=== PATIENT | male | born 1950 | race Caucasian/White ===

== ENCOUNTER 2017-05-10 14:03 | Inpatient (IN) | payer OTHER ==
[~2017-05-10] VITALS: Ht 180.3 cm; Wt 141.9 kg
[~2017-05-10 14:03] MED LIST: ASPI81 CHEW; LEXA5TAB PO; LURA20TA PO; RIVA15 PO; WELL150T PO; ZOCO40TA PO
--- NOTE | 2017-05-10 14:21 | PD ---
HPI Chief Complaint: SOB Time Seen by Provider: 14:19 Travel History International Travel<30 days: No Contact w/Intl Traveler<30days: No Traveled to known affect area: No History of Present Illness HPI 66-year-old male with history of CAD, hypertension, PE, on where friend, presents to the emergency department today for evaluation of hypoxia and worsening shortness of breath. Patient has been having cough and chest congestion over the last 5-6 days. He rode his bike to the [facility] today for a doctor's appointment. When he arrived, he was diaphoretic, short of breath, with oxygen saturations of 74%. Patient was given albuterol treatment there and ambulance was called to transport him here for further evaluation. Patient arrives with sensation of shortness of breath. He he states that after his breathing treatment he does feel a little bit better. He has had chills and unknown fever. No nausea or vomiting. Patient states his cough has been productive of a green sputum. He denies any pain. He has no other symptoms to report this time PFSH Past Medical History Blood Disorders: No Depression: Yes Cancer: No Cardiovascular Problems: Yes Endocrine: No Genitourinary: No Hypertension: Yes (HISTORY OF HYPERTENSION) Immune Disorder: No Implanted Vascular Access Dvce: No Musculoskeletal: Yes (OLD BACK INJURY THAT CAUSES OCCASSIONAL BACK PAIN) Neurologic: No (TINITIS ) Psychiatric: No Reproductive: No Respiratory: No Social History Alcohol Use: No Tobacco Use: No Substance Use: No Allergies-Medications (Allergen,Severity, Reaction): Coded Allergies: shellfish derived (Verified Allergy, Unknown, 05/10/17) Reported Meds & Prescriptions Reported Meds & Active Scripts Active Reported Warfarin 10 Mg Tab 10 Mg PO DAILY Atenolol 25 Mg Tab 25 Mg PO BID Simvastatin 40 Mg Tab 40 Mg PO HS Abilify (Aripiprazole) 10 Mg Tab 10 Mg PO DAILY Effexor XR 24 HR (Venlafaxine HCl) 150 Mg Cap 150 Mg PO DAILY Review of Systems Except as stated in HPI: all other systems reviewed are Neg Physical Exam Narrative GENERAL: Well-nourished male patient, in no acute distress. SKIN: Focused skin assessment warm/mildly diaphoretic. HEAD: Atraumatic. Normocephalic. EYES: Pupils equal and round. No scleral icterus. No injection or drainage. ENT: No nasal bleeding or discharge. Mucous membranes pink and moist. NECK: Trachea midline. No JVD. CARDIOVASCULAR: Tachycardic rate and rhythm. No murmur appreciated. RESPIRATORY: No accessory muscle use. Coarse throughout, diminished bases. Breath sounds equal bilaterally. GASTROINTESTINAL: Abdomen soft, non-tender, nondistended. Hepatic and splenic margins not palpable. MUSCULOSKELETAL: No obvious deformities. No clubbing. No cyanosis. No edema. NEUROLOGICAL: Awake and alert. No obvious cranial nerve deficits. Motor grossly within normal limits. Normal speech. PSYCHIATRIC: Appropriate mood and affect; insight and judgment normal. Data Data Last Documented VS Vital Signs Date Time Temp Pulse Resp B/P (MAP) Pulse Ox O2 Delivery O2 Flow Rate FiO2 05/10/17 15:51 95 Nasal Cannula 2.00 05/10/17 15:12 102 18 05/10/17 15:11 98.8 146/83 (104) Orders Orders Electrocardiogram (05/10/17 14:19) Complete Blood Count With Diff (05/10/17 14:19) Comprehensive Metabolic Panel (05/10/17 14:19) Prothrombin Time / Inr (Pt) (05/10/17 14:19) Act Partial Throm Time (Ptt) (05/10/17 14:19) Lactic Acid Sepsis Protocol (05/10/17 14:19) Ckmb (Isoenzyme) Profile (05/10/17 14:19) Troponin I (05/10/17 14:19) Urinalysis - C+S If Indicated (05/10/17 14:19) Influenzae A/B Antigen (05/10/17 14:19) Blood Culture (05/10/17 14:19) Chest, Pa & Lat (05/10/17 14:19) Blood Glucose (05/10/17 14:19) Ecg Monitoring (05/10/17 14:19) Iv Access Insert/Monitor (05/10/17 14:19) Oximetry (05/10/17 14:19) Oxygen Administration (05/10/17 14:19) Ceftriaxone Inj (Rocephin Inj) (05/10/17 14:30) Azithromycin Inj (Zithromax Inj) (05/10/17 14:30) CKMB (05/10/17 14:28) CKMB% (05/10/17 14:28) Albuterol-Ipratropium Neb (Duoneb Neb) (05/10/17 15:30) B-Type Natriuretic Peptide (05/10/17 16:36) Admit Order (Ed Use Only) (05/10/17 18:23) Labs Laboratory Tests Test 05/10/17 14:28 White Blood Count 8.6 TH/MM3 Red Blood Count 3.62 MIL/MM3 Hemoglobin 13.3 GM/DL Hematocrit 36.8 % Mean Corpuscular Volume 101.4 FL Mean Corpuscular Hemoglobin 36.6 PG Mean Corpuscular Hemoglobin Concent 36.1 % Red Cell Distribution Width 13.6 % Platelet Count 354 TH/MM3 Mean Platelet Volume 8.9 FL Neutrophils (%) (Auto) 62.7 % Lymphocytes (%) (Auto) 23.9 % Monocytes (%) (Auto) 9.2 % Eosinophils (%) (Auto) 3.7 % Basophils (%) (Auto) 0.5 % Neutrophils # (Auto) 5.4 TH/MM3 Lymphocytes # (Auto) 2.1 TH/MM3 Monocytes # (Auto) 0.8 TH/MM3 Eosinophils # (Auto) 0.3 TH/MM3 Basophils # (Auto) 0.0 TH/MM3 CBC Comment AUTO DIFF Differential Comment AUTO DIFF CONFIRMED Platelet Estimate HIGH Platelet Morphology Comment NORMAL Spherocytes OCC Prothrombin Time 17.2 SEC Prothromb Time International Ratio 1.5 RATIO Activated Partial Thromboplast Time 32.2 SEC Blood Urea Nitrogen 23 MG/DL Creatinine 0.95 MG/DL Random Glucose 118 MG/DL Total Protein 8.2 GM/DL Albumin 3.5 GM/DL Calcium Level 8.8 MG/DL Alkaline Phosphatase 69 U/L Aspartate Amino Transf (AST/SGOT) 32 U/L Alanine Aminotransferase (ALT/SGPT) 40 U/L Total Bilirubin 0.5 MG/DL Sodium Level 138 MEQ/L Potassium Level 4.4 MEQ/L Chloride Level 103 MEQ/L Carbon Dioxide Level 25.6 MEQ/L Anion Gap 9 MEQ/L Estimat Glomerular Filtration Rate 80 ML/MIN Lactic Acid Level 1.7 mmol/L Total Creatine Kinase 276 U/L Creatine Kinase MB 3.0 NG/ML Troponin I LESS THAN 0.02 NG/ML B-Type Natriuretic Peptide 14 PG/ML MDM Medical Decision Making Medical Screen Exam Complete: Yes Emergency Medical Condition: Yes Medical Record Reviewed: Yes Differential Diagnosis Pneumonia versus influenza versus bronchitis versus PE versus CHF versus ACS Narrative Course 66-year-old male presents to emergency department for evaluation. Patient appears without distress. He is mildly diaphoretic. His oxygen saturation is 86% on room air. Oxygen is applied and oxygen saturation increases to 94%. Patient does have coarse breath sounds throughout. Imaging studies and labs are ordered. Laboratory Tests Test 05/10/17 14:28 White Blood Count 8.6 TH/MM3 Red Blood Count 3.62 MIL/MM3 Hemoglobin 13.3 GM/DL Hematocrit 36.8 % Mean Corpuscular Volume 101.4 FL Mean Corpuscular Hemoglobin 36.6 PG Mean Corpuscular Hemoglobin Concent 36.1 % Red Cell Distribution Width 13.6 % Platelet Count 354 TH/MM3 Mean Platelet Volume 8.9 FL Neutrophils (%) (Auto) 62.7 % Lymphocytes (%) (Auto) 23.9 % Monocytes (%) (Auto) 9.2 % Eosinophils (%) (Auto) 3.7 % Basophils (%) (Auto) 0.5 % Neutrophils # (Auto) 5.4 TH/MM3 Lymphocytes # (Auto) 2.1 TH/MM3 Monocytes # (Auto) 0.8 TH/MM3 Eosinophils # (Auto) 0.3 TH/MM3 Basophils # (Auto) 0.0 TH/MM3 CBC Comment AUTO DIFF Differential Comment AUTO DIFF CONFIRMED Platelet Estimate HIGH Platelet Morphology Comment NORMAL Spherocytes OCC Prothrombin Time 17.2 SEC Prothromb Time International Ratio 1.5 RATIO Activated Partial Thromboplast Time 32.2 SEC Blood Urea Nitrogen 23 MG/DL Creatinine 0.95 MG/DL Random Glucose 118 MG/DL Total Protein 8.2 GM/DL Albumin 3.5 GM/DL Calcium Level 8.8 MG/DL Alkaline Phosphatase 69 U/L Aspartate Amino Transf (AST/SGOT) 32 U/L Alanine Aminotransferase (ALT/SGPT) 40 U/L Total Bilirubin 0.5 MG/DL Sodium Level 138 MEQ/L Potassium Level 4.4 MEQ/L Chloride Level 103 MEQ/L Carbon Dioxide Level 25.6 MEQ/L Anion Gap 9 MEQ/L Estimat Glomerular Filtration Rate 80 ML/MIN Lactic Acid Level 1.7 mmol/L Total Creatine Kinase 276 U/L Creatine Kinase MB 3.0 NG/ML Troponin I LESS THAN 0.02 NG/ML B-Type Natriuretic Peptide 14 PG/ML Last Impressions Chest X-Ray 05/10/17 [id number] Signed Impressions: Service Date/Time: May 14:31 - CONCLUSION: No acute disease. No significant change has occurred. Haris Galeana MD We have attempted to wean the patient off of his oxygen and the patient and his oxygen saturation does drop to 88%. Patient states he continues to have some mild shortness of breath. I discussed the patient with my attending agrees he will best benefit from observation status. Spoke with Dr. Davidson, resident physician retail services professional. Patient will be admitted observation to the [facility] [facility] resident service. Diagnosis Primary Impression: Bronchitis Additional Impressions: Shortness of breath Hypoxia Admitting Information Admitting Physician Requests: Observation Condition: Stable AlfaroMina jeanlizz TOURE May 10, 2017 14:21
[2017-05-10 14:22] VITALS: RESP 18; O2SAT 96
[2017-05-10] MEDS ORDERED: cefTRIAXone INJ 1,000 MG in SODIUM CHLORIDE 0.9% INJ 100 ML IV ONE (14:30)
[2017-05-10] MEDS ORDERED: AZITHROMYCIN INJ 500 MG in SODIUM CHLOR 0.9% 250 ML INJ 250 ML IV ONE (14:30)
--- NOTE | 2017-05-10 14:46 | RADRPT ---
EXAM DATE/TIME: 05/10/2017 14:31 [facility] COMPARISON: CHEST SINGLE AP, April 25, 2016, 8:38. INDICATIONS : Cough- Bronchitis. MEDICAL HISTORY : Hypertension. Bronchitis. SURGICAL HISTORY : None. ENCOUNTER: Initial ACUITY: 4 - 6 days PAIN SCORE: 0/10 LOCATION: Bilateral chest FINDINGS: PA and lateral views of the chest demonstrate the lungs to be symmetrically aerated without evidence of mass, infiltrate or effusion. The cardiomediastinal contours are unremarkable. Osseous structure s are intact. CONCLUSION: No acute disease. No significant change has occurred. Haris Galeana MD on May 10, 2017 at 14:44 Board Certified Radiologist. This report was verified electronically.
[2017-05-10 14:55] LABS: APTT (PATIENT) 32.2 SEC (24.3-30.1); INTERNATIONAL NORMALIZED RATIO 1.5 RATIO; PROTHROMBIN TIME - PATIENT 17.2 SEC (9.8-11.6)
[2017-05-10 15:03] LABS: ALT (GPT) 40 U/L (12-78); ANION GAP 9 MEQ/L (5-15); AST (GOT) 32 U/L (15-37); BICARBONATE 25.6 MEQ/L (21.0-32.0); BLOOD UREA NITROGEN 23 MG/DL (7-18); CHLORIDE 103 MEQ/L (98-107); GLOMERULAR FILTRATION RATE 80 ML/MIN (>89); POTASSIUM 4.4 MEQ/L (3.5-5.1); SODIUM (NA) 138 MEQ/L (136-145)
[2017-05-10 15:07] LABS: ALKALINE PHOSPHATASE 69 U/L (45-117); CREATINE KINASE 276 U/L (39-308); TOTAL BILIRUBIN ADULT 0.5 MG/DL (0.2-1.0)
[2017-05-10 15:11] VITALS: BP 146/83; PULSE 99; RESP 18; TEMP 98.8; O2SAT 95
[2017-05-10] MEDS ORDERED: EFFE150C PO (15:18)
[2017-05-10] MEDS ORDERED: ABIL10TA8 PO (15:18)
[2017-05-10] MEDS ORDERED: ATEN25TA PO (15:18)
[2017-05-10] MEDS ORDERED: WARF-22 PO (15:18)
[2017-05-10] MEDS ORDERED: SIMV40TA PO (15:18)
[2017-05-10] MEDS ORDERED: RESP: ALBUTEROL 2.5 MG/IPRATROPIUM 0.5 MG NEB (SCH) NEB ONE (15:30)
[2017-05-10 15:51] VITALS: O2SAT 95
[2017-05-10 15:56] LABS: AUTOMATED NEUTROPHIL # 5.4 TH/MM3 (1.8-7.7); BASOPHIL % 0.5 % (0.0-2.0); EOSINOPHIL # 0.3 TH/MM3 (0-0.4); EOSINOPHIL % 3.7 % (0.0-4.0); HEMATOCRIT 36.8 % (39.0-51.0); HEMO FLAGS AUTO DIFF; LYMPH % 23.9 % (9.0-44.0); LYMPHOCYTE # 2.1 TH/MM3 (1.0-4.8); MEAN CORPUSCULAR HEMOGLOBIN 36.6 PG (27.0-34.0); MEAN CORPUSCULAR HGB CONC 36.1 % (32.0-36.0); MONO % 9.2 % (0.0-8.0); NEUT % 62.7 % (16.0-70.0); PLATELET COUNT 354 TH/MM3 (150-450); RED BLOOD COUNT 3.62 MIL/MM3 (4.50-5.90); RED CELL DISTRIBUTION WIDTH 13.6 % (11.6-17.2); WHITE BLOOD COUNT 8.6 TH/MM3 (4.0-11.0)
[2017-05-10 15:59] LABS: MEAN CELL VOLUME 101.4 FL (80.0-100.0)
[2017-05-10 16:05] LABS: SCAN/DIFF AUTO DIFF CONFIRMED
[2017-05-10 16:06] LABS: PLATELET ESTIMATE SMEAR HIGH (NORMAL); PLATELET MORPHOLOGY NORMAL (NORMAL)
[2017-05-10 16:07] LABS: SPHEROCYTES OCC (NORMAL)
[2017-05-10] MEDS ORDERED: SODIUM CHLORIDE 0.9% FLUSH 10 ML FLUSH IV FLUSH PRN (18:45)
[2017-05-10] MEDS ORDERED: BISACODYL 10 MG SUPP RECTAL PRN (18:45)
[2017-05-10] MEDS ORDERED: MAGNESIUM HYDROXIDE SUSP 30 ML CUP PO PRN (18:45)
[2017-05-10] MEDS ORDERED: SENNOSIDES 8.6 MG TAB PO PRN (18:45)
[2017-05-10] MEDS ORDERED: NALOXONE HCL 0.4 MG/ML AMP IV PUSH PRN (18:45)
[2017-05-10] MEDS ORDERED: ONDANSETRON HCL 4 MG/2 ML VIAL IVP PRN (18:45)
[2017-05-10] MEDS ORDERED: LACTULOSE SYRUP 20 GM/30 ML CUP PO PRN (18:45)
--- NOTE | 2017-05-10 19:16 | HHI.HP ---
[facility] Service Family Medicine Primary Care Physician [facility] Admission Diagnosis SHORTNESS OF BREATH; HYPOXIA Diagnoses: International Travel<30 Days: No Contact w/Intl Traveler<30days: No History of Present Illness Patient is a 66 year old male with history of PE, HTN, hyperlipidemia, severe depression with suicide attempt 2014, and ADAM who presents with worsening bronchitis symptoms. He notes that 5 days ago he had onset of congestion, "coldlike" symptoms, and shortness of breath. Phlegm is greenish stringy and opaque, as much as a teaspoon at a time. It has worsened over time. Cough is coming in coughing fits, but they've stopped now. Subjective fever noted at home. No chills, n/v/diarrhea. No chest pain. Body aches due to coughing fits. Temperature at the [place] this morning was normal - 98.7F. NO flu shot. NO pneumococcal. NO sick contacts. Poor appetite and notes 10lb weight loss over the last week which he states is welcomed. Of note, he rode his bike to the [place] so had exerted himself and O2 sats were in the 90s% range. He normally does bike rides for transportation and had exertional dyspnea on the way to the [place] ( which was unusual for him). He had one episode of SOB when walking down a grocery store aisle yesterday. Symptoms like this happen every 3-4 years, usually resolving on their own but this time they did not. He called the [facility] to request meds, and he "presented so badly" that he was sent via [facility] to [place]. Depression: well managed with psychotropic medications. Had a PE last year, now on warfarin. He states he had a workup when he had PE gnosis and he had no DVTs or abnormal coagulopathy labs. In the ED, one dose of Rocephin and azithromycin were administered. A chest x- ray, EKG were obtained. DuoNeb treatment 1 administered. Review of Systems Constitutional: COMPLAINS OF: Fever (subjective), Change in appetite, DENIES: Chills, Dizziness Eyes: DENIES: Blurred vision, Diplopia Ears, nose, mouth, throat: COMPLAINS OF: Tinnitus (chronic ), DENIES: Hearing loss, Vertigo, Ear Pain Respiratory: COMPLAINS OF: Cough, Sputum production, DENIES: Hemoptysis, Shortness of breath Cardiovascular: COMPLAINS OF: Dyspnea on Exertion, DENIES: Chest pain, Palpitations, Lower Extremity Edema Gastrointestinal: DENIES: Abdominal pain, Black stools, Bloody stools, Constipation, Diarrhea, Nausea, Vomiting Genitourinary: DENIES: Urinary incontinence, Urgency, Dysuria Integumentary: DENIES: Pruritus, Rash Hematologic/lymphatic: DENIES: Bruising, Lymphadenopathy Psychiatric: COMPLAINS OF: Depression, DENIES: Hallucinations, Suicidal Ideation, Homicidal Ideation Past Family Social History Past Medical History PE HTN HL Depression ADAM Past Surgical History Soft palate trimming Reported Medications Reported Meds & Active Scripts Active Reported Warfarin 10 Mg Tab 10 Mg PO DAILY Atenolol 25 Mg Tab 25 Mg PO BID Simvastatin 40 Mg Tab 40 Mg PO HS Abilify (Aripiprazole) 10 Mg Tab 10 Mg PO DAILY Effexor XR 24 HR (Venlafaxine HCl) 150 Mg Cap 150 Mg PO DAILY Allergies: Coded Allergies: shellfish derived (Verified Allergy, Unknown, 05/10/17) Active Ordered Medications Inpatient Medications Albuterol/ Ipratropium (Duoneb Neb) 1 ampule ONCE ONCE NEB Last administered on 05/10/17 15:25; Start 05/10/17 at 15:30; Stop 05/10/17 at 15:31; Status DC Azithromycin 500 mg/Sodium Chloride 250 ml @ 250 mls/hr ONCE ONCE IV Last administered on 05/10/17 15:19; Start 05/10/17 at 14:30; Stop 05/10/17 at 15:29 ; Status DC Bisacodyl (Dulcolax Supp) 10 mg DAILY PRN RECTAL SEVERE CONSITIPATION; Start 05/10/17 at 18:45; Status UNV Ceftriaxone Sodium 1000 mg/ Sodium Chloride 100 ml @ 200 mls/hr ONCE ONCE IV Last administered on 05/10/17 15:19; Start 05/10/17 at 14:30; Stop 05/10/17 at 14:59; Status DC Lactulose (Lactulose Liq) 30 ml DAILY PRN PO SEVERE CONSITIPATION; Start at 18:45; Status UNV Magnesium Hydroxide (Milk Of Magnesia Liq) 30 ml Q12H PRN PO Mild constipation ; Start 05/10/17 at 18:45; Status UNV Naloxone HCl (Narcan Inj) 0.4 mg UNSCH PRN IV PUSH SEE LABEL COMMENTS; Start 05/10/17 at 18:45; Status UNV Ondansetron HCl (Zofran Inj) 4 mg Q6H PRN IVP NAUSEA OR VOMITING; Start at 18:45; Status UNV Senna/Docusate Sodium (Beatriz-Colace) 1 tab BID PO ; Start 05/10/17 at 21:00; Status UNV Sennosides (Senokot) 17.2 mg Q12H PRN PO Moderate constipation; Start 05/10/17 at 18:45; Status UNV Sodium Chloride (NS Flush) 2 ml BID IV FLUSH ; Start 05/10/17 at 21:00; Status UNV Family History Mother: ovarian cancer, heart disease Father: CABG x 4, late age Siblings: healthy Children: none Social History Lives alone in [facility] Retired, [employer] vet, 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 Oxygen saturations greater than 95%. SKIN: Warm and dry. No rashes or ecchymoses. HEAD: Atraumatic. Normocephalic. EYES: Pupils equal and round. No scleral icterus or conjunctival injection. No injection or drainage. ENT: No nasal bleeding or discharge. Mucous membranes pink and moist. No tonsillar erythema or exudates. NECK: Trachea midline. No JVD. No lymphadenopathy noted. CARDIOVASCULAR: Regular rate and rhythm. No murmurs, gallops, or rubs. RESPIRATORY: No accessory muscle use. Clear to auscultation. Breath sounds equal bilaterally. GASTROINTESTINAL: Abdomen soft, non-tender, nondistended. Bowel sounds normal. Hepatic and splenic margins not palpable. MUSCULOSKELETAL: Extremities without clubbing, cyanosis, or edema. No calf tenderness or asymmetry. No obvious deformities. NEUROLOGICAL: Awake and alert. No obvious cranial nerve deficits. Motor grossly within normal limits. Five out of 5 muscle strength in the arms and legs. Normal speech. PSYCHIATRIC: Appropriate mood and affect; insight and judgment normal. No SI or HI. Not responding to internal stimuli. Laboratory Laboratory Tests Test 05/10/17 14:28 White Blood Count 8.6 Red Blood Count 3.62 Hemoglobin 13.3 Hematocrit 36.8 Mean Corpuscular Volume 101.4 Mean Corpuscular Hemoglobin 36.6 Mean Corpuscular Hemoglobin Concent 36.1 Red Cell Distribution Width 13.6 Platelet Count 354 Mean Platelet Volume 8.9 Neutrophils (%) (Auto) 62.7 Lymphocytes (%) (Auto) 23.9 Monocytes (%) (Auto) 9.2 Eosinophils (%) (Auto) 3.7 Basophils (%) (Auto) 0.5 Neutrophils # (Auto) 5.4 Lymphocytes # (Auto) 2.1 Monocytes # (Auto) 0.8 Eosinophils # (Auto) 0.3 Basophils # (Auto) 0.0 CBC Comment AUTO DIFF Differential Comment AUTO DIFF CONFIRMED Platelet Estimate HIGH Platelet Morphology Comment NORMAL Spherocytes OCC Prothrombin Time 17.2 Prothromb Time International Ratio 1.5 Activated Partial Thromboplast Time 32.2 Blood Urea Nitrogen 23 Creatinine 0.95 Random Glucose 118 Total Protein 8.2 Albumin 3.5 Calcium Level 8.8 Alkaline Phosphatase 69 Aspartate Amino Transf (AST/SGOT) 32 Alanine Aminotransferase (ALT/SGPT) 40 Total Bilirubin 0.5 Sodium Level 138 Potassium Level 4.4 Chloride Level 103 Carbon Dioxide Level 25.6 Anion Gap 9 Estimat Glomerular Filtration Rate 80 Lactic Acid Level 1.7 Total Creatine Kinase 276 Creatine Kinase MB 3.0 Troponin I LESS THAN 0.02 B-Type Natriuretic Peptide 14 Date/Time Source Procedure Growth Status 05/10/17 14:45 Blood Peripheral Aerobic Blood Culture Pending Received 05/10/17 14:45 Blood Peripheral Anaerobic Blood Culture Pending Received 05/10/17 14:42 Nasal Washing Influenza Types A,B Antigen ([facility]) - Final NEGATIVE FOR FLU A AND B ANTIGEN.... Complete Result Diagram: 05/10/17 1428 05/10/17 1428 Imaging Last Impressions Chest X-Ray 05/10/17 1419 Signed Impressions: Service Date/Time: May 14:31 - CONCLUSION: No acute disease. No significant change has occurred. MD Connie Napoles VTE Risk Assessment Caprini VTE Risk Assessment: Mod/High Risk (score >= 2) Caprini Risk Assessment Model Point Value = 1 Point Value = 2 Point Value = 3 Point Value = 5 Age 41-60 Minor surgery BMI > 25 kg/m2 Swollen legs Varicose veins or History of unexplained or recurrent spontaneous Oral contraceptives or hormone replacement Sepsis (< 1 month) Serious lung disease, including pneumonia (< 1 month) Abnormal pulmonary function Acute myocardial infarction Congestive heart failure (< 1 month) History of inflammatory bowel disease Medical patient at bed rest Age 61-74 Arthroscopic surgery Major open surgery (> 45 min) Laparoscopic surgery (> 45 min) Malignancy Confined to bed (> 72 hours) Immobilizing plaster cast Central venous access Age >= 75 History of VTE Family history of VTE Factor V Leiden Prothrombin [id number] Lupus anticoagulant Anticardiolipin antibodies Elevated serum homocysteine Heparin-induced thrombocytopenia Other congenital or acquired thrombophilia Stroke (< 1 month) Elective arthroplasty Hip, pelvis, or leg fracture Acute spinal cord injury (< 1 month) Prophylaxis Regimen Total Risk Factor Score Risk Level Prophylaxis Regimen 0-1 Low Early ambulation 2 Moderate Order ONE of the following: *Sequential Compression Device (SCD) *Heparin 5000 units SQ BID 3-4 Higher Order ONE of the following medications: *Heparin 5000 units SQ TID *Enoxaparin/Lovenox 40 mg SQ daily (WT < 150 kg, CrCl > 30 mL/min) *Enoxaparin/Lovenox 30 mg SQ daily (WT < 150 kg, CrCl > 10-29 mL/min) *Enoxaparin/Lovenox 30 mg SQ BID (WT < 150 kg, CrCl > 30 mL/min) AND/OR *Sequential Compression Device (SCD) 5 or more Highest Order ONE of the following medications: *Heparin 5000 units SQ TID (Preferred with Epidurals) *Enoxaparin/Lovenox 40 mg SQ daily (WT < 150 kg, CrCl > 30 mL/min) *Enoxaparin/Lovenox 30 mg SQ daily (WT < 150 kg, CrCl > 10-29 mL/min) *Enoxaparin/Lovenox 30 mg SQ BID (WT < 150 kg, CrCl > 30 mL/min) AND *Sequential Compression Device (SCD) Assessment and Plan Assessment and Plan 56-year-old male who presents with upper respiratory symptoms, dyspnea on exertion, and hypoxia. He is admitted to observation for further monitoring of oxygen status and further workup. Code Status Patient states he would like to be DNR this hospital stay He is noted to have suicide attempt in 2015 Problem List: (1) Bronchitis ICD Codes: J40 - Bronchitis, not specified as acute or chronic Status: Acute Plan: Suspect viral episode. However, given increased severity of symptoms compared to previous viral episodes in addition to hypoxia, will treat for community-acquired pneumonia at this time. * Rocephin 1 g daily IV and azithromycin 500 mg daily PO initiated 05/10/17 * Duo nebs every 4 hours scheduled * Albuterol every 2 hours PRN * Oxygen via nasal cannula, titrated to go greater than 93% * Will initiate incentive spirometry * Likely to transition to by PO antibiotics in the morning * Mucinex PRN * Sputum culture if productive cough * Add influenza screening (2) Shortness of breath ICD Codes: R06.02 - Shortness of breath Status: Acute Plan: Suspected related to acute infection, however may be related to ADAM as well. PE cannot be definitively ruled out and patient does have Wells Score of 3 given hx PE and tachycardia * Monitor closely for oxygen saturations * Order D dimer (3) Hypoxia ICD Codes: R09.02 - Hypoxemia Status: Acute Plan: As above (4) Subtherapeutic anticoagulation ICD Codes: Z51.81 - Encounter for therapeutic drug level monitoring; Z79.01 - terminal gauger (current) use of anticoagulants Status: Acute Plan: Patient has a PE on warfarin 10 mg daily with exception of Sunday and Sunday during which time he takes 15 mg daily This was was diagnosed during hospital stay in April 2016 during which he was found to have a negative echo and negative coagulopathy work-up. INR is 1.5 on admission. * Will continue to monitor INR but this is subtherapeutic and he will likely require titration per PCP (5) HTN (hypertension) ICD Codes: I10 - Essential (primary) hypertension Status: Chronic Plan: * BP at goal * Plan was to continue home dose atenolol. Med rec states he takes 25 mg daily but patient states he sounds too high. * Atenolol to be held at this time and will use clonidine PRN * Consider pharmacy review; likely pt to be discharged tomorrow (6) HLD (hyperlipidemia) ICD Codes: E78.5 - Hyperlipidemia, unspecified Status: Chronic Plan: * Continue home dose pravastatin 80 mg nightly (7) Severe recurrent major depression ICD Codes: F33.2 - Severe recurrent major depression Status: Chronic Plan: * Previous suicide attempt on 8:15. Patient is currently on Effexor 150 mg daily , Abilify 10 mg daily. This is different than his regimen records from April 2016 admission. His depression is well controlled and notably would like to be DNR this hospital stay * There is no evidence of mood instability at this time and patient appears to have capacity * Will honor DNR request this hospital stay, monitor closely for signs of psychosis * Continue home dose Abilify 10 mg daily. Continue home dose of Effexor 150 mg daily. (8) Nutrition, metabolism, and development symptoms ICD Codes: R63.8 - Other symptoms and signs concerning food and fluid intake Status: Acute Plan: Fluids: tolerating PO Electrolytes: monitor and replete as needed Nutrition: heart-healthy diet DVT Prophylaxis: Early ambulation. Xarelto 10mg daily -, Sat and Sun, 15mg daily Sunday and Sunday. GI Prophylaxis: not indicated PRN anti-HTN: Clonidine 0.1mg PO PRN for SBP > 180/ and/or DBP > 100 Randi Davidson MD R2 May 10, 2017 19:16
[2017-05-10 19:38] VITALS: BP 117/83; PULSE 105; RESP 18; O2SAT 93
[2017-05-10] MEDS ORDERED: RESP: ALBUTEROL 2.5 MG/3 ML NEB (PRN) INH (19:45)
[2017-05-10 20:11] VITALS: BP 100/78; PULSE 104; RESP 19; TEMP 97.9; O2SAT 90
[2017-05-10] MEDS: RESP: ALBUTEROL 2.5 MG/IPRATROPIUM 0.5 MG NEB (SCH) INH (20:34)
[2017-05-10 20:35] VITALS: O2SAT 92
[2017-05-10] MEDS: SODIUM CHLORIDE 0.9% FLUSH 10 ML FLUSH IV FLUSH SCH (21:47)
[2017-05-10] MEDS: DOCUSATE SODIUM 50 MG/SENNA 8.6 MG TAB PO SCH (21:47)
[2017-05-10] MEDS: PRAVASTATIN SOD 80 MG TAB PO SCH (21:47)
[2017-05-10] MEDS: WARFARIN SOD 10 MG TAB PO SCH (21:47)
[2017-05-11] VITALS (8 sets, daily range): BP systolic 113–155; BP diastolic 56–89; PULSE 91–110; RESP 16–24; TEMP 96.2–98; O2SAT 92–95
[2017-05-11] MEDS ORDERED: guaiFENesin E.R. 600 MG TAB PO PRN (03:45)
[2017-05-11] MEDS: RESP: ALBUTEROL 2.5 MG/IPRATROPIUM 0.5 MG NEB (SCH) INH ×2 (03:54)
[2017-05-11] MEDS ORDERED: RESP: ALBUTEROL 2.5 MG/IPRATROPIUM 0.5 MG NEB (PRN) NEB (04:15)
[2017-05-11 07:00] LABS: AUTOMATED NEUTROPHIL # 8.3 TH/MM3 (1.8-7.7); BASOPHIL # 0.1 TH/MM3 (0-0.2); BASOPHIL % 0.8 % (0.0-2.0); EOSINOPHIL % 0.1 % (0.0-4.0); HEMATOCRIT 33.7 % (39.0-51.0); HEMO FLAGS DIFF FINAL; LYMPH % 12.6 % (9.0-44.0); LYMPHOCYTE # 1.3 TH/MM3 (1.0-4.8); MEAN CELL VOLUME 102.5 FL (80.0-100.0); MEAN CORPUSCULAR HEMOGLOBIN 36.7 PG (27.0-34.0); MEAN CORPUSCULAR HGB CONC 35.8 % (32.0-36.0); MONO % 5.5 % (0.0-8.0); PLATELET COUNT 377 TH/MM3 (150-450); RED BLOOD COUNT 3.29 MIL/MM3 (4.50-5.90); RED CELL DISTRIBUTION WIDTH 13.4 % (11.6-17.2); WHITE BLOOD COUNT 10.3 TH/MM3 (4.0-11.0)
[2017-05-11 07:16] LABS: ALT (GPT) 38 U/L (12-78); ANION GAP 9 MEQ/L (5-15); AST (GOT) 31 U/L (15-37); BICARBONATE 25.5 MEQ/L (21.0-32.0); BLOOD UREA NITROGEN 27 MG/DL (7-18); CHLORIDE 102 MEQ/L (98-107); GLOMERULAR FILTRATION RATE 87 ML/MIN (>89); POTASSIUM 4.5 MEQ/L (3.5-5.1); SODIUM (NA) 136 MEQ/L (136-145)
[2017-05-11 07:19] LABS: ALKALINE PHOSPHATASE 61 U/L (45-117); TOTAL BILIRUBIN ADULT 0.4 MG/DL (0.2-1.0)
[2017-05-11] MEDS: SODIUM CHLORIDE 0.9% FLUSH 10 ML FLUSH IV FLUSH SCH ×2 (10:49→20:16)
[2017-05-11] MEDS: ARIPiprazole 10 MG TAB PO SCH (10:49)
[2017-05-11] MEDS: VENLAFAXINE HCL XR 75 MG CAP PO SCH (10:50)
[2017-05-11] MEDS: DOCUSATE SODIUM 50 MG/SENNA 8.6 MG TAB PO SCH ×2 (10:50→20:17)
--- NOTE | 2017-05-11 12:08 | EKG ---
Date Performed: 05/10/2017 Time Performed: 15:03:55 PTAGE: 66 years EKG: SINUS TACHYCARDIA ABNORMAL RHYTHM ECG Compared to prior tracing no significant change PREVIOUS TRACING : 04/25/2016 08.35 DOCTOR: Michael Drake Interpretating Date/Time 05/11/2017 12:07:25
--- NOTE | 2017-05-11 12:08 | RADRPT ---
EXAM DATE/TIME: 05/11/2017 11:14 [facility] COMPARISON: CHEST PA & LAT, May 10, 2017, 14:31. CHEST SINGLE AP, April 25, 2016, 8:38. INDICATIONS : Congstion. MEDICAL HISTORY : Hypertension. SURGICAL HISTORY : None. ENCOUNTER: Subsequent ACUITY: 2 days PAIN SCORE: 0/10 LOCATION: Bilateral chest FINDINGS: A single view of the chest demonstrates the lungs to be symmetrically aerated without evidence of mas s, infiltrate or effusion. The cardiomediastinal contours are unremarkable. Osseous structures are intact. CONCLUSION: 1. No acute abnormality or significant interval change. Carroll Dominguez MD on May 11, 2017 at 12:05 Board Certified Radiologist. This report was verified electronically.
[2017-05-11] MEDS: RESP: ALBUTEROL 2.5 MG/IPRATROPIUM 0.5 MG NEB (SCH) NEB ×3 (12:17→18:29)
[2017-05-11] MEDS: methylPREDNISolone SOD SUCC 125 MG/2 ML VIAL IV PUSH SCH ×3 (13:31→23:46)
--- NOTE | 2017-05-11 13:42 | HHI.FPPN ---
Subjective Remarks This is a 66-year-old male who has been feeling "sick" for the past several days. Normally he reports that he'll get bronchitis and takes Robitussin-DM with relief in just a matter of a few days. This time he has been ill longer than this, he feels more shortness of breath, has a productive cough which is not normal for him. He rode his bike to the [place] to be checked and was found to have saturations in the 80s thus was sent to the emergency department via [facility]. He smokes usually one cigar a day, he has had palatopharyngeoplasty for obstructive sleep apnea and does not use C Pap. This morning, he still feels ill, is coughing significantly, feels sweaty but does not have chest pain. He had desaturations down into the low 90s and was placed on nasal O2. He was able to keep his breakfast down. Please see history and physical examination for this admission for additional historical details. Patient did attempt suicide in 2014. Objective Vitals Vital Signs Date Time Temp Pulse Resp B/P (MAP) Pulse Ox O2 Delivery O2 Flow Rate FiO2 05/11/17 12:29 97.8 109 20 133/77 (95) 95 05/11/17 08:40 95 Nasal Cannula 2.00 05/11/17 08:06 97.8 109 22 119/75 (90) 94 05/11/17 04:53 98.0 102 18 122/73 (89) 95 05/11/17 01:00 94 3.00 05/11/17 00:54 97.6 91 16 113/56 (75) 92 05/10/17 21:06 92 Nasal Cannula 2.00 05/10/17 20:35 92 Nasal Cannula 21 05/10/17 20:11 97.9 104 19 100/78 (85) 90 05/10/17 19:48 05/10/17 19:38 105 18 117/83 (94) 93 Room Air 05/10/17 15:51 95 Nasal Cannula 2.00 05/10/17 15:12 102 18 96 Nasal Cannula 2.00 05/10/17 15:11 98.8 99 18 146/83 (104) 95 Nasal Cannula 2.00 05/10/17 14:22 18 96 Nasal Cannula 2.00 05/10/17 14:22 95 Nasal Cannula 2.00 Result Diagram: 05/11/17 0615 05/11/17 0615 Other Results Laboratory Tests Test 05/10/17 14:28 05/11/17 06:15 05/11/17 13:24 White Blood Count 8.6 TH/MM3 10.3 TH/MM3 Red Blood Count 3.62 MIL/MM3 3.29 MIL/MM3 Hemoglobin 13.3 GM/DL 12.1 GM/DL Hematocrit 36.8 % 33.7 % Mean Corpuscular Volume 101.4 FL 102.5 FL Mean Corpuscular Hemoglobin 36.6 PG 36.7 PG Mean Corpuscular Hemoglobin Concent 36.1 % 35.8 % Red Cell Distribution Width 13.6 % 13.4 % Platelet Count 354 TH/MM3 377 TH/MM3 Mean Platelet Volume 8.9 FL 8.7 FL Neutrophils (%) (Auto) 62.7 % 81.0 % Lymphocytes (%) (Auto) 23.9 % 12.6 % Monocytes (%) (Auto) 9.2 % 5.5 % Eosinophils (%) (Auto) 3.7 % 0.1 % Basophils (%) (Auto) 0.5 % 0.8 % Neutrophils # (Auto) 5.4 TH/MM3 8.3 TH/MM3 Lymphocytes # (Auto) 2.1 TH/MM3 1.3 TH/MM3 Monocytes # (Auto) 0.8 TH/MM3 0.6 TH/MM3 Eosinophils # (Auto) 0.3 TH/MM3 0.0 TH/MM3 Basophils # (Auto) 0.0 TH/MM3 0.1 TH/MM3 CBC Comment AUTO DIFF DIFF FINAL Differential Comment AUTO DIFF CONFIRMED Platelet Estimate HIGH Platelet Morphology Comment NORMAL Spherocytes OCC Prothrombin Time 17.2 SEC Prothromb Time International Ratio 1.5 RATIO Activated Partial Thromboplast Time 32.2 SEC Blood Urea Nitrogen 23 MG/DL 27 MG/DL Creatinine 0.95 MG/DL 0.88 MG/DL Random Glucose 118 MG/DL 136 MG/DL Total Protein 8.2 GM/DL 7.7 GM/DL Albumin 3.5 GM/DL 3.3 GM/DL Calcium Level 8.8 MG/DL 9.1 MG/DL Alkaline Phosphatase 69 U/L 61 U/L Aspartate Amino Transf (AST/SGOT) 32 U/L 31 U/L Alanine Aminotransferase (ALT/SGPT) 40 U/L 38 U/L Total Bilirubin 0.5 MG/DL 0.4 MG/DL Sodium Level 138 MEQ/L 136 MEQ/L Potassium Level 4.4 MEQ/L 4.5 MEQ/L Chloride Level 103 MEQ/L 102 MEQ/L Carbon Dioxide Level 25.6 MEQ/L 25.5 MEQ/L Anion Gap 9 MEQ/L 9 MEQ/L Estimat Glomerular Filtration Rate 80 ML/MIN 87 ML/MIN Lactic Acid Level 1.7 mmol/L Total Creatine Kinase 276 U/L Creatine Kinase MB 3.0 NG/ML Troponin I LESS THAN 0.02 NG/ML B-Type Natriuretic Peptide 14 PG/ML Hematology Comments D-Dimer Quantitative (PE/DVT) 0.19 MG/L FEU Imaging Last 24 hours Impressions Chest X-Ray 05/11/17 0000 Signed Impressions: Service Date/Time: Thursday, May 11, 2017 11:14 - CONCLUSION: 1. No acute abnormality or significant interval change. Carroll Dominguez MD Chest X-Ray 05/10/17 1419 Signed Impressions: Service Date/Time: May 14:31 - CONCLUSION: No acute disease. No significant change has occurred. Haris Galeana MD Objective Remarks O. CONSTITUTIONAL/GEN: normally nourished, in some mild respiratory distress. EYES: conjunctiva normal, PERRLA, EOMI. ENT: Mouth normal, pharynx narrowed showing evidence of previous pharyngioplasty. NECK: thyroid midline, carotids symmetrical. LUNGS: Coarse rhonchi throughout all lung [place] CARDIOVASCULAR: RR without murmur or gallop. Trace pretibial and ankle edema. GI/ABD: soft without masses, without organomegaly. Protuberant. NEURO: No focal deficits. SKIN: color normal, no rashes noted. Sweaty. HEME/LYMPH: no bruising, petechia or significant adenopathy MUSC: back is normal in appearance. Extremities are normal in appearance. PSYCH/MENTAL STATUS: Alert and oriented x 3. A/P Assessment and Plan 56-year-old male who presents with upper respiratory symptoms, dyspnea on exertion, and hypoxia. He is admitted for further monitoring of oxygen status and further workup. See orders. Discharge Planning Anticipate discharge in 2-3 days. Attending Attestation Patient seen and examined. Case reviewed and discussed with the resident team. Agree with plan of care as discussed with me and documented in the resident note. Problem List: (1) Bronchitis ICD Codes: J40 - Bronchitis, not specified as acute or chronic Status: Acute Plan: Suspect viral episode. However, given increased severity of symptoms compared to previous viral episodes in addition to hypoxia, will treat for community-acquired pneumonia at this time. * Rocephin 1 g daily IV and azithromycin 500 mg daily PO initiated 05/10/17 * Duo nebs every 4 hours scheduled * Albuterol every 2 hours PRN * Oxygen via nasal cannula, titrated to go greater than 93% * Will initiate incentive spirometry * Likely to transition to by PO antibiotics in the morning * Mucinex PRN * Sputum culture if productive cough * Add influenza screening (2) Shortness of breath ICD Codes: R06.02 - Shortness of breath Status: Acute Plan: Suspected related to acute infection, however may be related to ADAM as well. PE cannot be definitively ruled out and patient does have Wells Score of 3 given hx PE and tachycardia * Monitor closely for oxygen saturations * Order D dimer (3) Hypoxia ICD Codes: R09.02 - Hypoxemia Status: Acute Plan: As above (4) Subtherapeutic anticoagulation ICD Codes: Z51.81 - Encounter for therapeutic drug level monitoring; Z79.01 - alf (current) use of anticoagulants Status: Acute Plan: Patient has a PE on warfarin 10 mg daily with exception of Sunday and Sunday during which time he takes 15 mg daily This was was diagnosed during hospital stay in April 2016 during which he was found to have a negative echo and negative coagulopathy work-up. INR is 1.5 on admission. * Will continue to monitor INR but this is subtherapeutic and he will likely require titration per PCP (5) HTN (hypertension) ICD Codes: I10 - Essential (primary) hypertension Status: Chronic Plan: * BP at goal * Plan was to continue home dose atenolol. Med rec states he takes 25 mg daily but patient states he sounds too high. * Atenolol to be held at this time and will use clonidine PRN * Consider pharmacy review; likely pt to be discharged tomorrow (6) HLD (hyperlipidemia) ICD Codes: E78.5 - Hyperlipidemia, unspecified Status: Chronic Plan: * Continue home dose pravastatin 80 mg nightly (7) Severe recurrent major depression ICD Codes: F33.2 - Severe recurrent major depression Status: Chronic Plan: * Previous suicide attempt on 8:15. Patient is currently on Effexor 150 mg daily , Abilify 10 mg daily. This is different than his regimen records from April 2016 admission. His depression is well controlled and notably would like to be DNR this hospital stay * There is no evidence of mood instability at this time and patient appears to have capacity * Will honor DNR request this hospital stay, monitor closely for signs of psychosis * Continue home dose Abilify 10 mg daily. Continue home dose of Effexor 150 mg daily. (8) Nutrition, metabolism, and development symptoms ICD Codes: R63.8 - Other symptoms and signs concerning food and fluid intake Status: Acute Plan: Fluids: tolerating PO Electrolytes: monitor and replete as needed Nutrition: heart-healthy diet DVT Prophylaxis: Early ambulation. Xarelto 10mg daily -, Sat and Sun, 15mg daily Sunday and Sunday. GI Prophylaxis: not indicated PRN anti-HTN: Clonidine 0.1mg PO PRN for SBP > 180/ and/or DBP > 100 Delilah Schreiber MD May 11, 2017 13:42
[2017-05-11 15:33] LABS: LACTIC ACID GHOST NOT REPORTABLE
[2017-05-11] MEDS: cefTRIAXone INJ 1,000 MG in SODIUM CHLORIDE 0.9% INJ 100 ML IV SCH (15:35)
[2017-05-11] MEDS: WARFARIN SOD 10 MG TAB PO SCH (15:36)
[2017-05-11] MEDS: AZITHROMYCIN 250 MG TAB PO SCH (15:37)
[2017-05-11] MEDS ORDERED: SODIUM CHLORID 0.9% 500 ML INJ 500 ML IV ONE (17:00)
[2017-05-11 18:01] LABS: BLOOD, URINE NEG (NEG); COMMENT (UR) CULT NOT INDICATED; CULTURE IF INDICATED CULT NOT INDICATED; GLUCOSE,URINE NEG (NEG); HYALINE CAST, URINE 7 /lpf (RARE); KETONE, URINE NEG (NEG); MUCUS URINE FEW /lpf (OCC); NITRITE,URINE NEG (NEG); URINE COLOR YELLOW (YELLW/STRAW)
[2017-05-11] MEDS: PRAVASTATIN SOD 80 MG TAB PO SCH (20:16)
[2017-05-12] VITALS (8 sets, daily range): BP systolic 120–162; BP diastolic 73–97; PULSE 97–118; RESP 18–21; TEMP 95.5–96.9; O2SAT 93–98
[2017-05-12] MEDS: RESP: ALBUTEROL 2.5 MG/IPRATROPIUM 0.5 MG NEB (SCH) NEB ×7 (01:15→23:30)
[2017-05-12] MEDS: methylPREDNISolone SOD SUCC 125 MG/2 ML VIAL IV PUSH SCH ×2 (05:47→18:00)
[2017-05-12] MEDS: DOCUSATE SODIUM 50 MG/SENNA 8.6 MG TAB PO SCH ×2 (09:00→22:55)
[2017-05-12] MEDS: SODIUM CHLORIDE 0.9% FLUSH 10 ML FLUSH IV FLUSH SCH ×2 (09:00→22:55)
[2017-05-12] MEDS: AZITHROMYCIN 250 MG TAB PO SCH (09:18)
[2017-05-12] MEDS: ARIPiprazole 10 MG TAB PO SCH (09:18)
[2017-05-12] MEDS: VENLAFAXINE HCL XR 75 MG CAP PO SCH (09:18)
[2017-05-12] MEDS ORDERED: INFLUENZA VIRUS VACCINE (QUADRIVALENT) 0.5 ML SYR IM ONE (10:00)
[2017-05-12] MEDS ORDERED: PNEUMOCOCCAL POLYVALENT INJ 25 MCG/0.5 ML SYR IM ONE (10:00)
--- NOTE | 2017-05-12 11:31 | HHI.FPPN ---
Subjective Remarks Patient was seen and examined this morning. He states he feels winded from O2 walk test which was failed (sats 84%) and he became diaphoretic during walk. His cough is non-productive. He notes his baseline is being able to ride his bike with no shortness of breath. No chest pain. (Randi Davidson MD R2) Objective Vitals Vital Signs Date Time Temp Pulse Resp B/P (MAP) Pulse Ox O2 Delivery O2 Flow Rate FiO2 05/12/17 08:06 93 Nasal Cannula 3.00 05/12/17 08:00 95.5 102 20 156/91 (112) 94 05/12/17 03:45 96.7 103 18 155/93 (113) 97 05/12/17 00:00 96.9 101 18 157/97 (117) 96 05/11/17 22:08 Nasal Cannula 3.00 05/11/17 21:46 96.2 110 20 155/89 (111) 94 05/11/17 20:42 94 Nasal Cannula 3.00 05/11/17 19:34 97.6 109 19 130/80 (97) 93 05/11/17 16:16 97.8 107 24 142/78 (99) 94 05/11/17 12:29 97.8 109 20 133/77 (95) 95 I/O 05/11/17 05/11/17 05/11/17 05/12/17 05/12/17 05/12/17 07:00 15:00 23:00 07:00 15:00 23:00 Intake Total 600 ml 240 ml Balance 600 ml 240 ml Intake Oral 600 ml 240 ml # Voids 1 1 # Bowel Movements 1 (Randi Davidson MD R2) Result Diagram: 05/11/17 0615 05/11/17 0615 Imaging Last Impressions Chest X-Ray 05/11/17 0000 Signed Impressions: Service Date/Time: Thursday, May 11, 2017 11:14 - CONCLUSION: 1. No acute abnormality or significant interval change. Carroll Dominguez MD Objective Remarks GENERAL: Patient is an obese white male who is diaphoretic and is on nasal cannula at 3L. SKIN: Warm and diaphoretic post walk test. No rashes or ecchymoses. HEAD: Atraumatic. Normocephalic. EYES: Pupils equal and round. No scleral icterus or conjunctival injection. No injection or drainage. ENT: No nasal bleeding or discharge. Mucous membranes pink and moist. No tonsillar erythema or exudates. NECK: Trachea midline. No JVD. No lymphadenopathy noted. CARDIOVASCULAR: Regular rate and rhythm. No murmurs, gallops, or rubs. RESPIRATORY: No accessory muscle use. Patient is wheezing, noted greater in expiratory phase. Good air movement and symmetric. No crackles. GASTROINTESTINAL: Abdomen nondistended. MUSCULOSKELETAL: Extremities without clubbing, cyanosis, or edema. No calf tenderness or asymmetry. No obvious deformities. NEUROLOGICAL: Awake and alert. No obvious cranial nerve deficits. Tremors noted. Motor grossly within normal limits. Five out of 5 muscle strength in the arms and legs. Normal speech. PSYCHIATRIC: Appropriate mood and affect; insight and judgment normal. No SI or HI. Not responding to internal stimuli. Medications and IVs Inpatient Medications Albuterol Sulfate (Albuterol Neb) 2.5 mg Q2HR NEB PRN INH SHORTNESS OF BREATH Last administered on 05/11/17 01:15; Start 05/10/17 at 19:45 Albuterol/ Ipratropium (Duoneb Neb) 1 ampule Q4HR NEB NEB Last administered on 05/12/17 08:06; Start 05/11/17 at 12:00 Aripiprazole (Abilify) 10 mg DAILY PO Last administered on 05/12/17 09:18; Start 05/11/17 at 09:00 Azithromycin (Zithromax) 500 mg DAILY PO Last administered on 05/12/17 09:18; Start 05/11/17 at 15:00 Azithromycin 500 mg/Sodium Chloride 250 ml @ 250 mls/hr ONCE ONCE IV Last administered on 05/10/17 15:19; Start 05/10/17 at 14:30; Stop 05/10/17 at 15:29 ; Status DC Bisacodyl (Dulcolax Supp) 10 mg DAILY PRN RECTAL SEVERE CONSITIPATION; Start 05/10/17 at 18:45 Ceftriaxone Sodium 1000 mg/ Sodium Chloride 100 ml @ 200 mls/hr Q24H IV Last administered on 05/11/17 15:35; Start 05/11/17 at 15:00 Guaifenesin (Mucinex Er) 600 mg BID PRN PO COUGH; Start 05/11/17 at 03:45 Influenza Virus Vaccine (Flu (Quadrivalent) Vaccine Inj) 0.5 ml ONCE ONCE IM ; Start 05/12/17 at 10:00; Stop 05/12/17 at 10:01; Status DC Lactulose (Lactulose Liq) 30 ml DAILY PRN PO SEVERE CONSITIPATION; Start at 18:45 Magnesium Hydroxide (Milk Of Magnesia Liq) 30 ml Q12H PRN PO Mild constipation ; Start 05/10/17 at 18:45 Methylprednisolone Sodium Succinate (SoluMEDROL INJ) 60 mg Q6HR IV PUSH Last administered on 05/12/17 05:47; Start 05/11/17 at 12:00 Naloxone HCl (Narcan Inj) 0.4 mg UNSCH PRN IV PUSH SEE LABEL COMMENTS; Start 05/10/17 at 18:45 Ondansetron HCl (Zofran Inj) 4 mg Q6H PRN IVP NAUSEA OR VOMITING; Start at 18:45 Patient Medication Teaching (Coumadin Booklet) 1 ONCE ONCE OTHER Last administered on 05/10/17 21:47; Start 05/10/17 at 19:30; Stop 05/10/17 at 19:31 ; Status DC Pneumococcal Polyvalent Vaccine (Pneumovax-23 Inj) 25 mcg ONCE ONCE IM ; Start 05/12/17 at 10:00; Stop 05/12/17 at 10:01; Status DC Pravastatin Sodium (Pravachol) 80 mg HS PO Last administered on 05/11/17 20:16 ; Start 05/10/17 at 21:00 Senna/Docusate Sodium (Beatriz-Colace) 1 tab BID PO Last administered on 10:50; Start 05/10/17 at 21:00 Sennosides (Senokot) 17.2 mg Q12H PRN PO Moderate constipation; Start 05/10/17 at 18:45 Sodium Chloride 500 ml @ 500 mls/hr BOLUS ONCE IV Last administered on 18:32; Start 05/11/17 at 17:00; Stop 05/11/17 at 17:59; Status DC Sodium Chloride (NS Flush) 2 ml BID IV FLUSH Last administered on 11/4/17at 09: 00; Start 05/10/17 at 21:00 Venlafaxine HCl (Effexor Xr) 150 mg DAILY PO Last administered on 05/12/17 09: 18; Start 05/11/17 at 09:00 Warfarin Sodium (Coumadin) 10 mg DAILY@1600 PO Last administered on 05/11/17 15:36; Start 05/10/17 at 19:15 (Randi Davidson MD R2) Urinary Catheter: No (Randi Davidson MD R2) Vascular Central Line Catheter: No (Randi Davidson MD R2) A/P Assessment and Plan 56-year-old male who presents with upper respiratory symptoms, dyspnea on exertion, and hypoxia. He is admitted for further monitoring of oxygen status and further workup. See orders. Discharge Planning Anticipate discharge in 2-3 days. Failed home O2 walk test 05/12/17 (Randi Davidson MD R2) Attending Attestation Patient seen and examined. Case reviewed and discussed with the resident team. Agree with plan of care as discussed with me and documented in the resident note. (Delilah Schreiber MD) Problem List: (1) Bronchitis ICD Codes: J40 - Bronchitis, not specified as acute or chronic Status: Acute Plan: Suspect viral episode. However, given increased severity of symptoms compared to previous viral episodes in addition to hypoxia, will treat for community-acquired pneumonia at this time. * Rocephin 1 g daily IV and azithromycin 500 mg daily PO initiated 05/10/17 * Duo nebs every 4 hours scheduled * Solumedrol 60mg q 6hr IV initiated 05/11/17, will titrate down to q12 hr today if patient tolerates. * Albuterol every 2 hours PRN * Oxygen via nasal cannula, goal saturation > or equal to 93% * Will initiate incentive spirometry * Likely to transition to by PO antibiotics 05/13 * Mucinex PRN * Sputum culture if productive cough * Influenza negative * Legionella and Strep negative * Blood cultures negative (2) Shortness of breath ICD Codes: R06.02 - Shortness of breath Status: Acute Plan: Suspected related to acute infection, however may be related to ADAM as well. PE ruled out with D dimer (Wells Score of 3 given hx PE and tachycardia on admission) * D dimer low * CXR in ED and repeat on 05/11 normal * Recommend patient receive new evaluation for CPAP given hx ADAM and narrowed airway * Failed home O2 walk test 05/12/17 (3) Hypoxia ICD Codes: R09.02 - Hypoxemia Status: Acute Plan: As above (4) Subtherapeutic anticoagulation ICD Codes: Z51.81 - Encounter for therapeutic drug level monitoring; Z79.01 - intermediate frame tender (current) use of anticoagulants Status: Acute Plan: Patient has a PE on warfarin 10 mg daily with exception of Sunday and Sunday during which time he takes 15 mg daily This was was diagnosed during hospital stay in April 2016 during which he was found to have a negative echo and negative coagulopathy work-up. INR is 1.5 on admission. * Continue warfarin at 10mg daily * Will continue to monitor INR but this is subtherapeutic and he will likely require titration per PCP (5) HTN (hypertension) ICD Codes: I10 - Essential (primary) hypertension Status: Chronic Plan: * BP elevated; will restart atenolol but at 12.5mg BID * Plan on admission was to continue home dose atenolol. Med rec states he takes 25 mg daily but patient states he sounds too high. * Clonidine PRN (6) HLD (hyperlipidemia) ICD Codes: E78.5 - Hyperlipidemia, unspecified Status: Chronic Plan: * Continue home dose pravastatin 80 mg nightly (7) Severe recurrent major depression ICD Codes: F33.2 - Severe recurrent major depression Status: Chronic Plan: * Previous suicide attempt on 02/2015. Patient is currently on Effexor 150 mg daily, Abilify 10 mg daily. This is different than his regimen records from April 2016 admission. His depression is well controlled and notably would like to be DNR this hospital stay * There is no evidence of mood instability at this time and patient appears to have capacity * Will honor DNR request this hospital stay, monitor closely for signs of psychosis * Continue home dose Abilify 10 mg daily. Continue home dose of Effexor 150 mg daily. (8) Nutrition, metabolism, and development symptoms ICD Codes: R63.8 - Other symptoms and signs concerning food and fluid intake Status: Acute Plan: Fluids: tolerating PO Electrolytes: monitor and replete as needed Nutrition: heart-healthy diet DVT Prophylaxis: Early ambulation. Xarelto 10mg daily in hospital. Home dose 10mg -, Sat and Sun; 15mg daily Sunday and Sunday. GI Prophylaxis: not indicated PRN anti-HTN: Clonidine 0.1mg PO PRN for SBP > 180/ and/or DBP > 100 (Randi Davidson MD R2) Randi Davidson MD R2 May 12, 2017 11:31 Delilah Schreiber MD May 12, 2017 12:27
[2017-05-12] MEDS: ATENOLOL 25 MG TAB PO SCH ×2 (12:23→22:55)
[2017-05-12] MEDS: cefTRIAXone INJ 1,000 MG in SODIUM CHLORIDE 0.9% INJ 100 ML IV SCH (15:00)
[2017-05-12] MEDS ORDERED: methylPREDNISolone SOD SUCC 125 MG/2 ML VIAL IV PUSH SCH (17:00)
[2017-05-12 17:11] LABS: INTERNATIONAL NORMALIZED RATIO 2.3 RATIO; PROTHROMBIN TIME - PATIENT 25.8 SEC (9.8-11.6)
[2017-05-12] MEDS: WARFARIN SOD 10 MG TAB PO SCH (18:16)
[2017-05-12] MEDS: PRAVASTATIN SOD 80 MG TAB PO SCH (22:55)
[2017-05-13] VITALS (9 sets, daily range): BP systolic 108–152; BP diastolic 61–91; PULSE 85–100; RESP 18–20; TEMP 95.5–97.4; O2SAT 92–95
[2017-05-13] MEDS: RESP: ALBUTEROL 2.5 MG/IPRATROPIUM 0.5 MG NEB (SCH) NEB ×5 (03:34→20:12)
[2017-05-13] MEDS: methylPREDNISolone SOD SUCC 125 MG/2 ML VIAL IV PUSH SCH ×2 (05:24→17:29)
[2017-05-13] MEDS: SODIUM CHLORIDE 0.9% FLUSH 10 ML FLUSH IV FLUSH SCH ×2 (09:00→19:27)
[2017-05-13] MEDS: DOCUSATE SODIUM 50 MG/SENNA 8.6 MG TAB PO SCH ×2 (09:00→19:26)
[2017-05-13] MEDS: AZITHROMYCIN 250 MG TAB PO SCH (09:10)
[2017-05-13] MEDS: VENLAFAXINE HCL XR 75 MG CAP PO SCH (09:10)
[2017-05-13] MEDS: ARIPiprazole 10 MG TAB PO SCH (09:10)
[2017-05-13] MEDS: ATENOLOL 25 MG TAB PO SCH ×2 (09:14→19:27)
--- NOTE | 2017-05-13 09:56 | HHI.FPPN ---
Subjective Remarks Pt. seen, examined and discussed with Dr. Ashley Davidson. This is a 66 yo male who was admitted for desaturations into the low- to-mid 80s at the [facility] after riding his bike to the [facility]. [place] [facility] [place] Has been receiving scheduled nebulizer treatments and IV steroids. He reports feeling no better this a.m., with persistent cough and wheezing. Minimal sputum production. Walked to the end of the [place] and back without O2 and felt winded as he returned to his room. He continues to get IV steroids but now only q 12 hr. Has been on nasal O2 at 3 liters/min. Having normal BMs and voiding without difficulty. No constipation or diarrhea. Objective Vitals Vital Signs Date Time Temp Pulse Resp B/P (MAP) Pulse Ox O2 Delivery O2 Flow Rate FiO2 05/13/17 09:10 Nasal Cannula 2.00 05/13/17 08:17 92 21 05/13/17 08:00 95.5 86 18 135/91 (106) 95 05/13/17 03:45 97 95 05/13/17 00:10 96.6 95 20 132/80 (97) 95 05/12/17 23:31 98 Nasal Cannula 3.00 05/12/17 20:33 Nasal Cannula 3.00 05/12/17 20:10 96.8 100 20 137/87 (104) 95 05/12/17 19:00 95 Nasal Cannula 3.00 05/12/17 16:00 96.7 97 20 162/97 (118) 95 05/12/17 12:00 96.7 118 21 120/73 (89) 94 I/O 05/12/17 05/12/17 05/12/17 05/13/17 05/13/17 05/13/17 07:00 15:00 23:00 07:00 15:00 23:00 Intake Total 240 ml 480 ml 960 ml Balance 240 ml 480 ml 960 ml Intake Oral 240 ml 480 ml 960 ml # Voids 1 1 1 2 # Bowel Movements 1 0 0 Result Diagram: 05/11/17 0615 05/11/17 0615 Other Results Laboratory Tests Test 05/12/17 16:23 Prothrombin Time 25.8 SEC Prothromb Time International Ratio 2.3 RATIO Imaging Last Impressions Chest X-Ray 05/11/17 0000 Signed Impressions: Service Date/Time: Thursday, May 11, 2017 11:14 - CONCLUSION: 1. No acute abnormality or significant interval change. Carroll Dominguez MD Objective Remarks GENERAL: Patient is an obese white male who is mildly diaphoretic and is on nasal cannula at 3L. SKIN: Warm and mildly diaphoretic after being up and about in room. No rashes or ecchymoses. HEAD: Atraumatic. Normocephalic. EYES: Pupils equal and round. No scleral icterus or conjunctival injection. No injection or drainage. ENT: No nasal bleeding or discharge. Mucous membranes pink and moist. No tonsillar erythema or exudates. NECK: Trachea midline. No JVD. No lymphadenopathy noted. CARDIOVASCULAR: Regular rate and rhythm. No murmurs, gallops, or rubs. RESPIRATORY: No accessory muscle use. Patient is wheezing, noted greater in expiratory phase. Good air movement and symmetric. No crackles. GASTROINTESTINAL: Abdomen nondistended. BS +. MUSCULOSKELETAL: Extremities without clubbing, cyanosis, or edema. No calf tenderness or asymmetry. No obvious deformities. NEUROLOGICAL: Awake and alert. No obvious cranial nerve deficits. No tremors noted. Motor grossly within normal limits. Five out of 5 muscle strength in the arms and legs. Normal speech. PSYCHIATRIC: Appropriate mood and affect; insight and judgment normal. A/P Assessment and Plan 56-year-old male who presents with upper respiratory symptoms, dyspnea on exertion, and hypoxia. He was admitted for further monitoring of oxygen status and further workup. See orders. Discharge Planning Anticipate discharge in 2-3 days. Failed home O2 walk test 05/12/17 Attending Attestation Patient seen and examined. Case reviewed and discussed with the resident team. Agree with plan of care as discussed with me and documented in the resident note. Problem List: (1) Bronchitis ICD Codes: J40 - Bronchitis, not specified as acute or chronic Status: Acute Plan: Suspect viral episode. However, given increased severity of symptoms compared to previous viral episodes in addition to hypoxia, will treat for community-acquired pneumonia at this time. * Rocephin 1 g daily IV and azithromycin 500 mg daily PO initiated 05/10/17 * Duo nebs every 4 hours scheduled * Solumedrol 60mg q 12hr IV initiated 05/11/17 * Albuterol every 2 hours PRN * Oxygen via nasal cannula, goal saturation > or equal to 93%, decreased to 2 liters/minute via nc 05-13-17. * Encouraged regular use of incentive spirometry * Likely to transition to by PO antibiotics 05/14 * Mucinex PRN * Sputum culture if productive cough * Influenza negative * Legionella and Strep negative * Blood cultures negative (2) Shortness of breath ICD Codes: R06.02 - Shortness of breath Status: Acute Plan: Suspected related to acute infection, however may be related to ADAM as well. PE ruled out with D dimer (Wells Score of 3 given hx PE and tachycardia on admission) * D dimer low * CXR in ED and repeat on 05/11 normal * Recommend patient receive new evaluation for CPAP given hx ADAM and narrowed airway * Failed home O2 walk test 05/12/17 (3) Hypoxia ICD Codes: R09.02 - Hypoxemia Status: Acute Plan: As above (4) Subtherapeutic anticoagulation ICD Codes: Z51.81 - Encounter for therapeutic drug level monitoring; Z79.01 - [facility] (current) use of anticoagulants Status: Acute Plan: Patient has a PE on warfarin 10 mg daily with exception of Sunday and Sunday during which time he takes 15 mg daily This was was diagnosed during hospital stay in April 2016 during which he was found to have a negative echo and negative coagulopathy work-up. INR is 1.5 on admission. * Continue warfarin at 10mg daily * Will continue to monitor INR, 2.3 05-12-17 (5) HTN (hypertension) ICD Codes: I10 - Essential (primary) hypertension Status: Chronic Plan: * BP elevated; will restart atenolol but at 12.5mg BID * Plan on admission was to continue home dose atenolol. Med rec states he takes 25 mg daily but patient states that sounds too high. * Clonidine PRN (6) HLD (hyperlipidemia) ICD Codes: E78.5 - Hyperlipidemia, unspecified Status: Chronic Plan: * Continue home dose pravastatin 80 mg nightly (7) Severe recurrent major depression ICD Codes: F33.2 - Severe recurrent major depression Status: Chronic Plan: * Previous suicide attempt on 02/2015. Patient is currently on Effexor 150 mg daily, Abilify 10 mg daily. This is different than his regimen records from April 2016 admission. His depression is well controlled and notably would like to be DNR this hospital stay * There is no evidence of mood instability at this time and patient appears to have capacity * Will honor DNR request this hospital stay, monitor closely for signs of psychosis * Continue home dose Abilify 10 mg daily. Continue home dose of Effexor 150 mg daily. (8) Nutrition, metabolism, and development symptoms ICD Codes: R63.8 - Other symptoms and signs concerning food and fluid intake Status: Acute Plan: Fluids: tolerating PO Electrolytes: monitor and replete as needed Nutrition: heart-healthy diet DVT Prophylaxis: Early ambulation. Xarelto 10mg daily in hospital. Home dose of coumadin 10mg -, Sat and Sun; 15mg daily Sunday and Sunday. GI Prophylaxis: not indicated PRN anti-HTN: Clonidine 0.1mg PO PRN for SBP > 180/ and/or DBP > 100 Problem Qualifiers (1) HLD (hyperlipidemia): Qualified Codes: E78.2 - Mixed hyperlipidemia Delilah Schreiber MD May 13, 2017 09:56
[2017-05-13 10:52] LABS: INTERNATIONAL NORMALIZED RATIO 2.6 RATIO; PROTHROMBIN TIME - PATIENT 29.4 SEC (9.8-11.6)
[2017-05-13 11:03] LABS: ALT (GPT) 56 U/L (12-78); ANION GAP 9 MEQ/L (5-15); AST (GOT) 50 U/L (15-37); BICARBONATE 27.9 MEQ/L (21.0-32.0); BLOOD UREA NITROGEN 25 MG/DL (7-18); CHLORIDE 100 MEQ/L (98-107); GLOMERULAR FILTRATION RATE 73 ML/MIN (>89); POTASSIUM 4.5 MEQ/L (3.5-5.1); SODIUM (NA) 137 MEQ/L (136-145)
[2017-05-13 11:04] LABS: ALKALINE PHOSPHATASE 65 U/L (45-117); TOTAL BILIRUBIN ADULT 0.4 MG/DL (0.2-1.0)
[2017-05-13 11:14] LABS: AUTOMATED NEUTROPHIL # 10.6 TH/MM3 (1.8-7.7); BASOPHIL % 0.2 % (0.0-2.0); HEMATOCRIT 38.7 % (39.0-51.0); HEMO FLAGS DIFF FINAL; LYMPH % 9.8 % (9.0-44.0); LYMPHOCYTE # 1.2 TH/MM3 (1.0-4.8); MEAN CELL VOLUME 98.9 FL (80.0-100.0); MEAN CORPUSCULAR HEMOGLOBIN 33.9 PG (27.0-34.0); MEAN CORPUSCULAR HGB CONC 34.3 % (32.0-36.0); MONO % 2.5 % (0.0-8.0); NEUT % 87.5 % (16.0-70.0); PLATELET COUNT 454 TH/MM3 (150-450); RED BLOOD COUNT 3.91 MIL/MM3 (4.50-5.90); RED CELL DISTRIBUTION WIDTH 13.9 % (11.6-17.2); WHITE BLOOD COUNT 12.1 TH/MM3 (4.0-11.0)
[2017-05-13] MEDS: cefTRIAXone INJ 1,000 MG in SODIUM CHLORIDE 0.9% INJ 100 ML IV SCH (14:40)
[2017-05-13] MEDS: WARFARIN SOD 10 MG TAB PO SCH (16:43)
[2017-05-13] MEDS: PRAVASTATIN SOD 80 MG TAB PO SCH (19:27)
[2017-05-14] VITALS (8 sets, daily range): BP systolic 95–134; BP diastolic 47–92; PULSE 81–99; RESP 16–18; TEMP 95.4–97.7; O2SAT 92–97
[2017-05-14] MEDS: RESP: ALBUTEROL 2.5 MG/IPRATROPIUM 0.5 MG NEB (SCH) NEB ×6 (00:34→21:14)
[2017-05-14] MEDS: methylPREDNISolone SOD SUCC 125 MG/2 ML VIAL IV PUSH SCH (05:27)
[2017-05-14 07:50] LABS: ANION GAP 8 MEQ/L (5-15); AST (GOT) 41 U/L (15-37); AUTOMATED NEUTROPHIL # 8.3 TH/MM3 (1.8-7.7); BASOPHIL % 0.2 % (0.0-2.0); BICARBONATE 28.9 MEQ/L (21.0-32.0); BLOOD UREA NITROGEN 25 MG/DL (7-18); CHLORIDE 99 MEQ/L (98-107); GLOMERULAR FILTRATION RATE 72 ML/MIN (>89); HEMATOCRIT 36.5 % (39.0-51.0); LYMPH % 12.6 % (9.0-44.0); LYMPHOCYTE # 1.3 TH/MM3 (1.0-4.8); MEAN CELL VOLUME 98.1 FL (80.0-100.0); MEAN CORPUSCULAR HEMOGLOBIN 35.3 PG (27.0-34.0); MONO % 5.7 % (0.0-8.0); NEUT % 81.5 % (16.0-70.0); PLATELET COUNT 397 TH/MM3 (150-450); POTASSIUM 4.7 MEQ/L (3.5-5.1); RED BLOOD COUNT 3.73 MIL/MM3 (4.50-5.90); RED CELL DISTRIBUTION WIDTH 13.5 % (11.6-17.2); SODIUM (NA) 136 MEQ/L (136-145); WHITE BLOOD COUNT 10.2 TH/MM3 (4.0-11.0)
[2017-05-14 07:51] LABS: ALT (GPT) 59 U/L (12-78)
[2017-05-14 07:52] LABS: HEMO FLAGS AUTO DIFF
[2017-05-14 07:54] LABS: ALKALINE PHOSPHATASE 60 U/L (45-117); TOTAL BILIRUBIN ADULT 0.4 MG/DL (0.2-1.0)
[2017-05-14] MEDS: DOCUSATE SODIUM 50 MG/SENNA 8.6 MG TAB PO SCH ×2 (09:00→20:42)
[2017-05-14 09:24] LABS: PLATELET ESTIMATE SMEAR NORMAL (NORMAL); PLATELET MORPHOLOGY NORMAL (NORMAL); SCAN/DIFF AUTO DIFF CONFIRMED
[2017-05-14] MEDS: SODIUM CHLORIDE 0.9% FLUSH 10 ML FLUSH IV FLUSH SCH ×2 (09:44→20:49)
[2017-05-14] MEDS: ATENOLOL 25 MG TAB PO SCH ×2 (09:45→20:42)
[2017-05-14] MEDS: AZITHROMYCIN 250 MG TAB PO SCH (09:45)
[2017-05-14] MEDS: VENLAFAXINE HCL XR 75 MG CAP PO SCH (09:45)
[2017-05-14] MEDS: ARIPiprazole 10 MG TAB PO SCH (09:45)
[2017-05-14] MEDS: guaiFENesin E.R. 600 MG TAB PO SCH ×2 (09:51→20:42)
[2017-05-14] MEDS: RESP: BUDESONIDE 0.5 MG/2 ML NEB NEB SCH ×2 (11:51→21:13)
[2017-05-14] MEDS: predniSONE 20 MG TAB PO SCH ×2 (12:08→14:00)
[2017-05-14] MEDS: FLUTICASONE PROPIONATE 50 MCG/ACT 16 GM NASAL SPRAY EACH NARE SCH (12:08)
--- NOTE | 2017-05-14 13:32 | HHI.FPPN ---
Subjective Remarks Pt is feeling better today and is breathing easier, although he is coughing and wheezing a bit. He feels like his upper airway makes it hard to get air in and out of his lungs. Reports that he walked to the end of the [place] and back ok without supplemental O2, but got a little winded by the time he got back to his room. He passed the walk test with his nurse today. (Lex Eubanks MD R1) Objective Vitals Vital Signs Date Time Temp Pulse Resp B/P (MAP) Pulse Ox O2 Delivery O2 Flow Rate FiO2 05/14/17 09:45 Nasal Cannula 2.00 05/14/17 07:58 95.4 88 18 134/83 (100) 97 05/14/17 07:52 92 Nasal Cannula 2.00 05/14/17 03:06 96.7 81 18 95/47 (63) 95 05/14/17 00:35 95 Nasal Cannula 2.00 05/13/17 23:15 96.7 85 19 108/61 (77) 95 05/13/17 20:12 94 Nasal Cannula 2.00 05/13/17 19:25 97.4 100 19 152/90 (110) 95 05/13/17 16:00 96.6 94 18 122/78 (93) 95 I/O 05/13/17 05/13/17 05/13/17 05/14/17 05/14/17 05/14/17 07:00 15:00 23:00 07:00 15:00 23:00 Intake Total 960 ml 480 ml 360 ml Balance 960 ml 480 ml 360 ml Intake Oral 960 ml 480 ml 360 ml # Voids 2 3 2 1 # Bowel Movements 0 1 0 1 (Lex Eubanks MD R1) Result Diagram: 05/14/1710 05/14/17 0710 Other Results Laboratory Tests Test 05/14/17 07:10 05/14/17 16:56 Red Blood Count 3.73 MIL/MM3 Hematocrit 36.5 % Mean Corpuscular Hemoglobin 35.3 PG Neutrophils (%) (Auto) 81.5 % Neutrophils # (Auto) 8.3 TH/MM3 Blood Urea Nitrogen 25 MG/DL Random Glucose 123 MG/DL Aspartate Amino Transf (AST/SGOT) 41 U/L Estimat Glomerular Filtration Rate 72 ML/MIN Lactic Acid Level 3.3 mmol/L 3.4 mmol/L Laboratory Tests Test 05/13/17 10:19 05/14/17 07:10 05/14/17 16:56 White Blood Count 12.1 TH/MM3 10.2 TH/MM3 Red Blood Count 3.91 MIL/MM3 3.73 MIL/MM3 Hemoglobin 13.3 GM/DL 13.2 GM/DL Hematocrit 38.7 % 36.5 % Mean Corpuscular Volume 98.9 FL 98.1 FL Mean Corpuscular Hemoglobin 33.9 PG 35.3 PG Mean Corpuscular Hemoglobin Concent 34.3 % 36.0 % Red Cell Distribution Width 13.9 % 13.5 % Platelet Count 454 TH/MM3 397 TH/MM3 Mean Platelet Volume 8.4 FL 8.1 FL Neutrophils (%) (Auto) 87.5 % 81.5 % Lymphocytes (%) (Auto) 9.8 % 12.6 % Monocytes (%) (Auto) 2.5 % 5.7 % Eosinophils (%) (Auto) 0.0 % 0.0 % Basophils (%) (Auto) 0.2 % 0.2 % Neutrophils # (Auto) 10.6 TH/MM3 8.3 TH/MM3 Lymphocytes # (Auto) 1.2 TH/MM3 1.3 TH/MM3 Monocytes # (Auto) 0.3 TH/MM3 0.6 TH/MM3 Eosinophils # (Auto) 0.0 TH/MM3 0.0 TH/MM3 Basophils # (Auto) 0.0 TH/MM3 0.0 TH/MM3 CBC Comment DIFF FINAL AUTO DIFF Differential Comment AUTO DIFF CONFIRMED Hematology Comments Prothrombin Time 29.4 SEC Prothromb Time International Ratio 2.6 RATIO Blood Urea Nitrogen 25 MG/DL 25 MG/DL Creatinine 1.02 MG/DL 1.04 MG/DL Random Glucose 111 MG/DL 123 MG/DL Total Protein 8.2 GM/DL 7.7 GM/DL Albumin 3.5 GM/DL 3.5 GM/DL Calcium Level 9.1 MG/DL 9.0 MG/DL Alkaline Phosphatase 65 U/L 60 U/L Aspartate Amino Transf (AST/SGOT) 50 U/L 41 U/L Alanine Aminotransferase (ALT/SGPT) 56 U/L 59 U/L Total Bilirubin 0.4 MG/DL 0.4 MG/DL Sodium Level 137 MEQ/L 136 MEQ/L Potassium Level 4.5 MEQ/L 4.7 MEQ/L Chloride Level 100 MEQ/L 99 MEQ/L Carbon Dioxide Level 27.9 MEQ/L 28.9 MEQ/L Anion Gap 9 MEQ/L 8 MEQ/L Estimat Glomerular Filtration Rate 73 ML/MIN 72 ML/MIN Platelet Estimate NORMAL Platelet Morphology Comment NORMAL Lactic Acid Level 3.3 mmol/L 3.4 mmol/L Imaging Last Impressions Chest X-Ray 05/11/17 0000 Signed Impressions: Service Date/Time: Thursday, May 11, 2017 11:14 - CONCLUSION: 1. No acute abnormality or significant interval change. Carroll Dominguez MD Objective Remarks GENERAL: Patient is an obese white male who is mildly diaphoretic and is on nasal cannula at 3L. SKIN: Warm and mildly diaphoretic after being up and about in room. No rashes or ecchymoses. HEAD: Atraumatic. Normocephalic. EYES: Pupils equal and round. No scleral icterus or conjunctival injection. No injection or drainage. ENT: No nasal bleeding or discharge. Mucous membranes pink and moist. No tonsillar erythema or exudates. NECK: Trachea midline. No JVD. No lymphadenopathy noted. CARDIOVASCULAR: Regular rate and rhythm. No murmurs, gallops, or rubs. RESPIRATORY: No accessory muscle use. Patient is wheezing, noted greater in expiratory phase. Good air movement and symmetric. No crackles. GASTROINTESTINAL: Abdomen nondistended. BS +. MUSCULOSKELETAL: Extremities without clubbing, cyanosis, or edema. No calf tenderness or asymmetry. No obvious deformities. NEUROLOGICAL: Awake and alert. No obvious cranial nerve deficits. No tremors noted. Motor grossly within normal limits. Five out of 5 muscle strength in the arms and legs. Normal speech. PSYCHIATRIC: Appropriate mood and affect; insight and judgment normal. Medications and IVs Current Medications Medications (Trade) Dose Ordered Sig/Dutch Route Start Time Stop Time Status Last Admin (NS Flush) 2 ml UNSCH PRN IV FLUSH 05/10/17 18:45 (NS Flush) 2 ml BID IV FLUSH 05/10/17 21:00 05/14/17 09:44 (Zofran Inj) 4 mg Q6H PRN IVP 05/10/17 18:45 (Narcan Inj) 0.4 mg UNSCH PRN IV PUSH 05/10/17 18:45 (Beatriz-Colace) 1 tab BID PO 05/10/17 21:00 05/13/17 19:26 (Milk Of Magnesia Liq) 30 ml Q12H PRN PO 05/10/17 18:45 (Senokot) 17.2 mg Q12H PRN PO 05/10/17 18:45 (Dulcolax Supp) 10 mg DAILY PRN RECTAL 05/10/17 18:45 (Lactulose Liq) 30 ml DAILY PRN PO 05/10/17 18:45 (Abilify) 10 mg DAILY PO 05/11/17 09:00 05/14/17 09:45 (Effexor Xr) 150 mg DAILY PO 05/11/17 09:00 05/14/17 09:45 (Coumadin) 10 mg DAILY@1600 PO 05/10/17 19:15 05/14/17 16:32 (Pravachol) 80 mg HS PO 05/10/17 21:00 05/13/17 19:27 Ceftriaxone Sodium 1000 mg/ Sodium Chloride 100 ml @ 200 mls/hr Q24H IV 05/11/17 15:00 05/14/17 16:32 (Zithromax) 500 mg DAILY PO 05/11/17 15:00 05/14/17 09:45 (Albuterol Neb) 2.5 mg Q2HR NEB PRN INH 05/10/17 19:45 05/11/17 01:15 (Duoneb Neb) 1 ampule Q4HR NEB NEB 05/11/17 12:00 05/14/17 16:00 (Tenormin) 12.5 mg Q12HR PO 05/12/17 12:00 05/14/17 09:45 (Mucinex Er) 600 mg BID PO 05/14/17 09:30 05/14/17 09:51 (Flonase Charles Spr) 2 spray DAILY EACH NARE 05/14/17 10:30 05/14/17 12:08 (Pulmicort Respule Neb) 0.5 mg Q12HR NEB NEB 05/14/17 10:15 05/14/17 11:51 (Deltasone) 40 mg BID@0900,1400 PO 05/14/17 10:15 05/14/17 14:00 (Lex Eubanks MD R1) Urinary Catheter: No (Lex Eubanks MD R1) Vascular Central Line Catheter: No (Lex Eubanks MD R1) A/P Assessment and Plan 56-year-old male who presents with upper respiratory symptoms, dyspnea on exertion, and hypoxia. He was admitted for further monitoring of oxygen status and further workup. DDx: viral URI vs bronchitis vs croup Discharge Planning Anticipate discharge in 2-3 days. Failed home O2 walk test 05/12/17 (Lex Eubanks MD R1) Attending Attestation Patient seen and examined. Case reviewed and discussed with the resident team. Agree with plan of care as discussed with me and documented in the resident note. (Delilah Schreiber MD) Problem List: (1) Bronchitis ICD Codes: J40 - Bronchitis, not specified as acute or chronic Status: Acute Plan: Suspect viral episode. However, given increased severity of symptoms compared to previous viral episodes in addition to hypoxia, will treat for community-acquired pneumonia at this time. * Rocephin 1 g daily IV and azithromycin 500 mg daily PO initiated 05/10/17 * Duo nebs every 4 hours scheduled * Discontinue Solumedrol 60mg q 12hr IV initiated 05/11/17 * Start Prednisone 40mg PO BID (AM and 2PM) * Start Pulmicort ICS inhaler * Albuterol every 2 hours PRN * Oxygen via nasal cannula, goal saturation > or equal to 93%, decreased to 2 liters/minute via nc 05-13-17. * Encouraged regular use of incentive spirometry * Likely to transition to by PO antibiotics 05/14 * Mucinex PRN * Sputum culture if productive cough * Influenza negative * Legionella and Strep negative * Blood cultures negative * ABG pending * Lactate continues to rise--at 3.4 this afternoon * Passed walk test without supplemental O2 this afternoon (2) Shortness of breath ICD Codes: R06.02 - Shortness of breath Status: Acute Plan: Suspected related to acute infection, however may be related to ADAM as well. PE ruled out with D dimer (Wells Score of 3 given hx PE and tachycardia on admission) * D dimer low * CXR in ED and repeat on 05/11 normal * Recommend patient receive new evaluation for CPAP given hx ADAM and narrowed airway * Failed home O2 walk test 05/12/17; passed 05/14/17 (3) Hypoxia ICD Codes: R09.02 - Hypoxemia Status: Acute Plan: As above (4) Subtherapeutic anticoagulation ICD Codes: Z51.81 - Encounter for therapeutic drug level monitoring; Z79.01 - [facility] (current) use of anticoagulants Status: Acute Plan: Patient has a PE on warfarin 10 mg daily with exception of Sunday and Sunday during which time he takes 15 mg daily This was was diagnosed during hospital stay in April 2016 during which he was found to have a negative echo and negative coagulopathy work-up. INR is 1.5 on admission. * Continue warfarin at 10mg daily * Will continue to monitor INR, 2.3 05-12-17 (5) HTN (hypertension) ICD Codes: I10 - Essential (primary) hypertension Status: Chronic Plan: * BP wnl on atenolol 12.5mg BID * Clonidine PRN (6) HLD (hyperlipidemia) ICD Codes: E78.5 - Hyperlipidemia, unspecified Status: Chronic Plan: * Continue home dose pravastatin 80 mg nightly (7) Severe recurrent major depression ICD Codes: F33.2 - Severe recurrent major depression Status: Chronic Plan: * Previous suicide attempt on 02/2015. Patient is currently on Effexor 150 mg daily, Abilify 10 mg daily. This is different than his regimen records from April 2016 admission. His depression is well controlled and notably would like to be DNR this hospital stay * There is no evidence of mood instability at this time and patient appears to have capacity * Will honor DNR request this hospital stay, monitor closely for signs of psychosis * Continue home dose Abilify 10 mg daily. Continue home dose of Effexor 150 mg daily. (8) Nutrition, metabolism, and development symptoms ICD Codes: R63.8 - Other symptoms and signs concerning food and fluid intake Status: Acute Plan: Fluids: tolerating PO Electrolytes: monitor and replete as needed Nutrition: heart-healthy diet DVT Prophylaxis: Early ambulation. Xarelto 10mg daily in hospital. Home dose of coumadin 10mg -, Sat and Sun; 15mg daily Sunday and Sunday. GI Prophylaxis: not indicated PRN anti-HTN: Clonidine 0.1mg PO PRN for SBP > 180/ and/or DBP > 100 (Lex Eubanks MD R1) Problem Qualifiers (1) HLD (hyperlipidemia): Qualified Codes: E78.2 - Mixed hyperlipidemia Lex Eubanks MD R1 May 14, 2017 13:32 Delilah Schreiber MD May 15, 2017 09:17
[2017-05-14] MEDS ORDERED: PRED20 PO ×2 (15:27→16:06)
[2017-05-14] MEDS ORDERED: FLUT50SP EACH NARE (15:27)
[2017-05-14] MEDS ORDERED: IPRASOL INH ×2 (15:27→16:02)
[2017-05-14] MEDS ORDERED: BUDE.5I NEB (15:27)
[2017-05-14] MEDS ORDERED: ALBU0.08 NEB (15:27)
[2017-05-14] MEDS ORDERED: NEBULIZER1 MI1 ×2 (15:27→16:06)
--- NOTE | 2017-05-14 15:28 | HHI.DCPOC ---
Discharge Care Plan Diagnosis: (1) Shortness of breath (2) Bronchitis (3) HTN (hypertension) (4) HLD (hyperlipidemia) Goals to Promote Your Health * To prevent worsening of your condition and complications * To maintain your health at the optimal level Directions to Meet Your Goals Take your medications as prescribed Follow your dietary instruction Follow activity as directed Keep your appointments as scheduled Take your immunizations and boosters as scheduled If your symptoms worsen call your PCP, if no PCP go to Urgent Care Center or Emergency Room Smoking is Dangerous to Your Health. Avoid second hand smoke Call the 24-hour hour crisis hotline for domestic abuse at Suad Wilkinson MD R2 May 14, 2017 15:28
[2017-05-14] MEDS ORDERED: guaiFENesin ER PO (16:06)
[2017-05-14] MEDS: cefTRIAXone INJ 1,000 MG in SODIUM CHLORIDE 0.9% INJ 100 ML IV SCH (16:32)
[2017-05-14] MEDS: WARFARIN SOD 10 MG TAB PO SCH (16:32)
[2017-05-14 19:27] LABS: LACTIC ACID GHOST NOT REPORTABLE
[2017-05-14] MEDS: PRAVASTATIN SOD 80 MG TAB PO SCH (20:42)
[2017-05-15] VITALS: BP 104/73; PULSE 88; RESP 16; TEMP 97.3; O2SAT 92
[2017-05-15] MEDS: RESP: ALBUTEROL 2.5 MG/IPRATROPIUM 0.5 MG NEB (SCH) NEB ×4 (00:37→11:37)
[2017-05-15 01:24] LABS: BLOOD GAS BASE EXCESS 1.3 mmol/L (-2-2); BLOOD GAS CARBOXYHEMOGLOBIN 1.2 % (0-4); BLOOD GAS HCO3 25 mmol/L (22-26); BLOOD GAS METHEMOGLOBIN 0.7 % (0-2); BLOOD GAS O2 HGB SATURATION 89 % (90-100); BLOOD GAS OXYGEN CONTENT 17.3 Vol % (12.0-20.0); BLOOD GAS PCO2 40 mmHg (38-42); BLOOD GAS PO2 65 mmHg (61-120); BLOOD GAS TOTAL HGB 13.8 G/DL (12.0-16.0); TEMP CORR TO 98.6
[2017-05-15 01:26] LABS: OXYGEN DEVICE ROOM AIR
[2017-05-15 01:27] LABS: CRITICAL VALUE YES; DRAW SITE RT RADIAL; FIO2 21 %; NUMBER OF ARTERIAL PUNCTURES 1
[2017-05-15 01:28] LABS: STAT NO; ULNAR PULSE PRESENT
[2017-05-15 02:03] VITALS: O2SAT 93
[2017-05-15 04:00] VITALS: BP 138/90; PULSE 91; RESP 16; TEMP 96.1; O2SAT 99
[2017-05-15 07:05] LABS: AUTOMATED NEUTROPHIL # 7.7 TH/MM3 (1.8-7.7); BASOPHIL % 0.3 % (0.0-2.0); HEMATOCRIT 37.4 % (39.0-51.0); HEMO FLAGS DIFF FINAL; LYMPH % 17.7 % (9.0-44.0); LYMPHOCYTE # 1.8 TH/MM3 (1.0-4.8); MEAN CELL VOLUME 98.1 FL (80.0-100.0); MEAN CORPUSCULAR HEMOGLOBIN 34.9 PG (27.0-34.0); MEAN CORPUSCULAR HGB CONC 35.6 % (32.0-36.0); MONO % 5.3 % (0.0-8.0); NEUT % 76.7 % (16.0-70.0); PLATELET COUNT 416 TH/MM3 (150-450); RED BLOOD COUNT 3.81 MIL/MM3 (4.50-5.90); RED CELL DISTRIBUTION WIDTH 13.7 % (11.6-17.2)
[2017-05-15 07:16] LABS: BICARBONATE 25.7 MEQ/L (21.0-32.0); POTASSIUM 3.9 MEQ/L (3.5-5.1)
[2017-05-15] MEDS: RESP: BUDESONIDE 0.5 MG/2 ML NEB NEB SCH (07:27)
[2017-05-15 07:29] VITALS: O2SAT 96
[2017-05-15 07:44] VITALS: BP 129/72; PULSE 98; RESP 18; TEMP 96; O2SAT 98
[2017-05-15 08:33] LABS: LACTIC ACID GHOST NOT REPORTABLE
--- NOTE | 2017-05-15 10:03 | HHI.DS ---
Discharge Summary Admission Date May 11, 2017 at 15:36 Discharge Date: May 15, 2017 Admitting Diagnosis SHORTNESS OF BREATH; HYPOXIA (1) Bronchitis Diagnosis: Principal ICD Codes: J40 - Bronchitis, not specified as acute or chronic Status: Acute (2) Hypoxia Diagnosis: Principal ICD Codes: R09.02 - Hypoxemia Status: Acute (3) Subtherapeutic anticoagulation Diagnosis: Secondary ICD Codes: Z51.81 - Encounter for therapeutic drug level monitoring; Z79.01 - custodial (current) use of anticoagulants Status: Acute (4) HTN (hypertension) Diagnosis: Secondary ICD Codes: I10 - Essential (primary) hypertension Status: Chronic (5) HLD (hyperlipidemia) Diagnosis: Secondary ICD Codes: E78.5 - Hyperlipidemia, unspecified Status: Chronic Brief History Patient is a 66 year old male with history of PE, HTN, hyperlipidemia, severe depression with suicide attempt 2014, and ADAM who presents with worsening bronchitis symptoms. He notes that 5 days ago he had onset of congestion, "coldlike" symptoms, and shortness of breath. Phlegm is greenish stringy and opaque, as much as a teaspoon at a time. It has worsened over time. Cough is coming in coughing fits, but they've stopped now. Subjective fever noted at home. No chills, n/v/diarrhea. No chest pain. Body aches due to coughing fits. [place] the [facility] this morning was normal - 98.7F. NO flu shot. NO pneumococcal. NO sick contacts. Poor appetite and notes 10lb weight loss over the last week which he states is welcomed. Of note, he [place] his bike to [place] so had exerted himself and O2 sats were in the 90s% range. He normally does bike rides for transportation and had exertional dyspnea on the way to the [place] ( which was unusual for him). He had one episode of SOB when walking down a grocery store aisle yesterday. Symptoms like this happen every 3-4 years, usually resolving on their own but this time they did not. He called the [facility] to request meds, and he "presented so badly" that he was sent via [facility] to [facility]. Depression: well managed with psychotropic medications. Had a PE last year, now on warfarin. He states he had a workup when he had PE gnosis and he had no DVTs or abnormal coagulopathy labs. In the ED, one dose of Rocephin and azithromycin were administered. A chest x- ray, EKG were obtained. DuoNeb treatment 1 administered. CBC/BMP: 05/15/17 0620 05/15/17 0620 Significant Findings Laboratory Tests Test 05/12/17 16:23 05/13/17 10:19 05/14/17 07:10 05/14/17 16:56 Prothrombin Time 25.8 SEC (9.8-11.6) 29.4 SEC (9.8-11.6) White Blood Count 12.1 TH/MM3 (4.0-11.0) Red Blood Count 3.91 MIL/MM3 (4.50-5.90) 3.73 MIL/MM3 (4.50-5.90) Hematocrit 38.7 % (39.0-51.0) 36.5 % (39.0-51.0) Platelet Count 454 TH/MM3 (150-450) Neutrophils (%) (Auto) 87.5 % (16.0-70.0) 81.5 % (16.0-70.0) Neutrophils # (Auto) 10.6 TH/MM3 (1.8-7.7) 8.3 TH/MM3 (1.8-7.7) Blood Urea Nitrogen 25 MG/DL (7-18) 25 MG/DL (7-18) Random Glucose 111 MG/DL (74-106) 123 MG/DL (74-106) Aspartate Amino Transf (AST/SGOT) 50 U/L (15-37) 41 U/L (15-37) Estimat Glomerular Filtration Rate 73 ML/MIN (>89) 72 ML/MIN (>89) Mean Corpuscular Hemoglobin 35.3 PG (27.0-34.0) Lactic Acid Level 3.3 mmol/L (0.4-2.0) 3.4 mmol/L (0.4-2.0) Test 05/14/17 21:10 05/15/17 01:12 05/15/17 06:20 Lactic Acid Level 2.9 mmol/L (0.4-2.0) 2.4 mmol/L (0.4-2.0) Blood Gas Oxygen Saturation 89 % (90-100) Red Blood Count 3.81 MIL/MM3 (4.50-5.90) Hematocrit 37.4 % (39.0-51.0) Mean Corpuscular Hemoglobin 34.9 PG (27.0-34.0) Neutrophils (%) (Auto) 76.7 % (16.0-70.0) Blood Urea Nitrogen 25 MG/DL (7-18) Random Glucose 123 MG/DL (74-106) Estimat Glomerular Filtration Rate 83 ML/MIN (>89) PE at Discharge GENERAL: Patient is an obese white male who is mildly diaphoretic and is on nasal cannula at 3L. SKIN: Warm and mildly diaphoretic after being up and about in room. No rashes or ecchymoses. HEAD: Atraumatic. Normocephalic. EYES: Pupils equal and round. No scleral icterus or conjunctival injection. No injection or drainage. ENT: No nasal bleeding or discharge. Mucous membranes pink and moist. No tonsillar erythema or exudates. NECK: Trachea midline. No JVD. No lymphadenopathy noted. CARDIOVASCULAR: Regular rate and rhythm. No murmurs, gallops, or rubs. RESPIRATORY: No accessory muscle use. Patient is wheezing, noted greater in expiratory phase. Good air movement and symmetric. No crackles. GASTROINTESTINAL: Abdomen nondistended. BS +. MUSCULOSKELETAL: Extremities without clubbing, cyanosis, or edema. No calf tenderness or asymmetry. No obvious deformities. NEUROLOGICAL: Awake and alert. No obvious cranial nerve deficits. No tremors noted. Motor grossly within normal limits. Five out of 5 muscle strength in the arms and legs. Normal speech. PSYCHIATRIC: Appropriate mood and affect; insight and judgment normal. Hospital Course 56-year-old male presented with upper respiratory symptoms, dyspnea on exertion , wheezing, and hypoxia. He was admitted for further monitoring of oxygen status and further workup. Differential diagnoses included viral URI vs bronchitis vs croup. He was managed with Rocephin IV 5 days and azithromycin by mouth 5 days. He also received multiple DuoNeb and inhaled corticosteroid nebulizer (Pulmicort) treatments during his hospital stay. By day 4 of admission , patient had significantly improved and was able to walk up and down the hallway while maintaining his O2 saturation at 92% or higher. Although his lactate levels were elevated, he was afebrile and did not appear septic. His blood and sputum cultures were negative. He was deemed stable for discharge on 05/15/17. Please see the discharge medication documentation for more information on medication additions and changes during this admission. Notably, his INR was subtherapeutic on admission and was 2.6 on 05/13/17. Pt Condition on Discharge: Stable Discharge Disposition: Discharge Home Discharge Instructions DIET: Follow Instructions for: Heart Healthy Diet Activities you can perform: Regular-No Restrictions Follow up Referrals: PCP Follow-up - 1 Week Pls follow up with your physician at the [facility]. Thank you. Pulmonology - 1 Week New Medications: Budesonide Neb (Pulmicort Respules) 0.5 Mg/2 Ml Neb 0.5 MG NEB Q12HR NEB for Breathing Treatment, #60 NEBULE 0 Refills Ipratropium-Albuterol Neb (Duoneb) 0.5-2.5 Mg/3 Ml Neb 1 NEBULE INH Q6HR NEB PRN for SHORTNESS OF BREATH, #120 NEBULE 0 Refills Nebulizer (Nebulizer) 1 Mis Mis EA .ROUTE DIRECTED for Breathing Treatment, #1 0 Refills Fluticasone Nasal [place] (Fluticasone Nasal [place]) 50 Mcg/Act Naspr 2 SPRAY EACH NARE DAILY, #1 BOTTLE 50 mcg/spray Prednisone (Prednisone) 20 Mg Tab 40 MG PO DAILY, #3 TAB [guaiFENesin ER] () 600 MG TABCR 600 MG PO BID PRN for COUGH, #10 Continued Medications: Aripiprazole (Abilify) 10 Mg Tab 10 MG PO DAILY, #30 TAB 0 Refills Atenolol (Atenolol) 25 Mg Tab 25 MG PO BID for Blood Pressure Management, #60 TAB 0 Refills Simvastatin (Simvastatin) 40 Mg Tab 40 MG PO HS for Cholesterol Management, #30 TAB 0 Refills Venlafaxine ER 24 HR (Effexor XR 24 HR) 150 Mg Cap 150 MG PO DAILY, #30 CAP 0 Refills Warfarin (Warfarin) 10 Mg Tab 10 MG PO DAILY for Blood Clot Prevention, #30 TAB 0 Refills Suad Wilkinson MD R2 May 15, 2017 10:03
--- NOTE | 2017-05-15 10:03 | HHI.FPPN ---
Subjective Remarks Pt is doing much better today and is less short of breath. He states that he woke up with some wheezing which later improved. He thinks the inhaled steroid nebulizer treatments have been very helpful. He is still coughing but less. (Suad Wilkinson MD R2) Objective Vitals Vital Signs Date Time Temp Pulse Resp B/P (MAP) Pulse Ox O2 Delivery O2 Flow Rate FiO2 05/15/17 07:44 96.0 98 18 129/72 (91) 98 05/15/17 07:29 96 21 05/15/17 04:00 96.1 91 16 138/90 (106) 99 05/15/17 02:03 93 Nasal Cannula 2.00 05/15/17 00:00 97.3 88 16 104/73 (83) 92 05/14/17 21:15 93 05/14/17 20:54 Room Air 05/14/17 20:00 97.0 99 16 127/92 (104) 93 05/14/17 16:00 97.7 99 18 118/78 (91) 94 05/14/17 14:32 2.00 05/14/17 12:00 95.7 94 18 121/87 (98) 92 I/O 05/14/17 05/14/17 05/14/17 05/15/17 05/15/17 05/15/17 07:00 15:00 23:00 07:00 15:00 23:00 Intake Total 360 ml 480 ml 350 ml Balance 360 ml 480 ml 350 ml Intake Oral 360 ml 480 ml 350 ml # Voids 1 1 3 3 # Bowel Movements 1 0 0 (Suad Wilkinson MD R2) Result Diagram: 05/15/1720 05/15/17 0620 Objective Remarks GENERAL: Obese white male seen walking down the [place], in [facility] SKIN: No rashes or ecchymoses. HEAD: Atraumatic. Normocephalic. EYES: Pupils equal and round. No scleral icterus or conjunctival injection. No injection or drainage. ENT: No nasal bleeding or discharge. Mucous membranes pink and moist. No tonsillar erythema or exudates. NECK: Trachea midline. No JVD. No lymphadenopathy noted. CARDIOVASCULAR: Regular rate and rhythm. No murmurs, gallops, or rubs. RESPIRATORY: No accessory muscle use. Much less wheezing today, mostly transmitted upper respiratory sounds. Good air movement and symmetric. No crackles. GASTROINTESTINAL: Abdomen nondistended. BS +. MUSCULOSKELETAL: Extremities without clubbing, cyanosis, or edema. No calf tenderness or asymmetry. No obvious deformities. NEUROLOGICAL: Awake and alert. No obvious cranial nerve deficits. No tremors noted. PSYCHIATRIC: Appropriate mood and affect; insight and judgment normal. (Suad Wilkinson MD R2) A/P Assessment and Plan 56-year-old male who presents with upper respiratory symptoms, dyspnea on exertion, and hypoxia. He was admitted for further monitoring of oxygen status and further workup. DDx: viral URI vs bronchitis vs croup Discharge Planning Plan to discharge home today (Suad Wilkinson MD R2) Attending Attestation Pt. encouraged on admission and on discharge to obtain a cpap for his sleep apnea. He did have palatopharyngoplasty in the past in preference to this. However, his body habitus puts him at increased risk for heart attack and stroke , which could be reduced with cpap at least 5 hours/night. Pt. also understands that while his lactic acid levels remain relatively high, he is clinically much improved, having passed his walk test today. He is no longer requiring nasal O2 to maintain his saturation, which was 94% after a lengthy walk without O2. He agrees to follow up this week with his [facility] physician and will warehouse order picker his prescriptions at the [facility] today. Patient seen and examined. Case reviewed and discussed with the resident team. Agree with plan of care as discussed with me and documented in the resident note. (Delilah Schreiber MD) Problem List: (1) Bronchitis ICD Codes: J40 - Bronchitis, not specified as acute or chronic Status: Acute Plan: Suspect viral episode. However, given increased severity of symptoms compared to previous viral episodes in addition to hypoxia, will treat for community-acquired pneumonia at this time. * Rocephin 1 g daily IV and azithromycin 500 mg daily PO initiated 05/10/17- completed 6 doses of azithromycin and 5 doses of Rocephin-adequately treated * Duo nebs every 4 hours scheduled * Continue Prednisone 40mg PO BID (AM and 2PM) - discharge home with prednisone 40 mg by mouth twice a day 3 days * Continue Pulmicort nebulizer - will discharge home with this medication * Albuterol every 2 hours PRN * Currently off oxygen * Encouraged regular use of incentive spirometry * Mucinex PRN * ABG on 05/15 was essentially normal with pH of 7.42 and PCO2 of 40, PO2 of 65, O2 saturation was a little low at 89% * Lactate trended down from 3.4 to 2.4 but increased to 4.4, which was measured immediately after patient walked up and down the [place] (2) Shortness of breath ICD Codes: R06.02 - Shortness of breath Status: Acute Plan: Suspected related to acute infection, however may be related to ADAM as well. PE ruled out with D dimer (Wells Score of 3 given hx PE and tachycardia on admission) * D dimer low * CXR in ED and repeat on 05/11 normal * Recommend patient receive new evaluation for CPAP given hx ADAM and narrowed airway * Failed home O2 walk test 05/12/17; passed 05/14/17 (3) HTN (hypertension) ICD Codes: I10 - Essential (primary) hypertension Status: Chronic Plan: * BP wnl on atenolol 12.5mg BID * Clonidine PRN (4) HLD (hyperlipidemia) ICD Codes: E78.5 - Hyperlipidemia, unspecified Status: Chronic Plan: * Continue home dose pravastatin 80 mg nightly (5) Severe recurrent major depression ICD Codes: F33.2 - Severe recurrent major depression Status: Chronic Plan: * Previous suicide attempt on 02/2015. Patient is currently on Effexor 150 mg daily, Abilify 10 mg daily. This is different than his regimen records from April 2016 admission. His depression is well controlled and notably would like to be DNR this hospital stay * There is no evidence of mood instability at this time and patient appears to have capacity * Will honor DNR request this hospital stay, monitor closely for signs of psychosis * Continue home dose Abilify 10 mg daily. Continue home dose of Effexor 150 mg daily. (6) Nutrition, metabolism, and development symptoms ICD Codes: R63.8 - Other symptoms and signs concerning food and fluid intake Status: Acute Plan: Fluids: tolerating PO Electrolytes: monitor and replete as needed Nutrition: heart-healthy diet DVT Prophylaxis: Early ambulation. Xarelto 10mg daily in hospital. Home dose of coumadin 10mg -, Sat and Sun; 15mg daily Sunday and Sunday. GI Prophylaxis: not indicated PRN anti-HTN: Clonidine 0.1mg PO PRN for SBP > 180/ and/or DBP > 100 (Suad Wilkinson MD R2) Problem Qualifiers (1) HLD (hyperlipidemia): Qualified Codes: E78.2 - Mixed hyperlipidemia Suad Wilkinson MD R2 May 15, 2017 10:03 Delilah Schreiber MD May 15, 2017 14:47
[2017-05-15] MEDS: AZITHROMYCIN 250 MG TAB PO SCH (10:39)
[2017-05-15] MEDS: ATENOLOL 25 MG TAB PO SCH (10:39)
[2017-05-15] MEDS: ARIPiprazole 10 MG TAB PO SCH (10:40)
[2017-05-15] MEDS: guaiFENesin E.R. 600 MG TAB PO SCH (10:40)
[2017-05-15] MEDS: predniSONE 20 MG TAB PO SCH (10:44)
[2017-05-15] MEDS: VENLAFAXINE HCL XR 75 MG CAP PO SCH (10:44)
[2017-05-15] MEDS: FLUTICASONE PROPIONATE 50 MCG/ACT 16 GM NASAL SPRAY EACH NARE SCH (10:45)
[2017-05-15 12:00] VITALS: BP 137/75; PULSE 105; RESP 18; TEMP 96.1; O2SAT 96
--- NOTE | 2017-05-15 13:19 | HHI.FPPN ---
Objective Vitals Vital Signs Date Time Temp Pulse Resp B/P (MAP) Pulse Ox O2 Delivery O2 Flow Rate FiO2 05/15/17 12:00 96.1 105 18 137/75 (95) 96 05/15/17 07:44 96.0 98 18 129/72 (91) 98 05/15/17 07:29 96 21 05/15/17 04:00 96.1 91 16 138/90 (106) 99 05/15/17 02:03 93 Nasal Cannula 2.00 05/15/17 00:00 97.3 88 16 104/73 (83) 92 05/14/17 21:15 93 05/14/17 20:54 Room Air 05/14/17 20:00 97.0 99 16 127/92 (104) 93 05/14/17 16:00 97.7 99 18 118/78 (91) 94 05/14/17 14:32 2.00 I/O 05/14/17 05/14/17 05/14/17 05/15/17 05/15/17 05/15/17 07:00 15:00 23:00 07:00 15:00 23:00 Intake Total 360 ml 480 ml 350 ml Balance 360 ml 480 ml 350 ml Intake Oral 360 ml 480 ml 350 ml # Voids 1 1 3 3 # Bowel Movements 1 0 0 Result Diagram: 05/15/1761905/15/17619 Objective Remarks GENERAL: Patient is an obese white male seen walking down the [place] SKIN: No rashes or ecchymoses. HEAD: Atraumatic. Normocephalic. EYES: Pupils equal and round. No scleral icterus or conjunctival injection. No injection or drainage. ENT: No nasal bleeding or discharge. Mucous membranes pink and moist. No tonsillar erythema or exudates. NECK: Trachea midline. No JVD. No lymphadenopathy noted. CARDIOVASCULAR: Regular rate and rhythm. No murmurs, gallops, or rubs. RESPIRATORY: No accessory muscle use. Much less wheezing today, mostly transmitted upper respiratory sounds. Good air movement and symmetric. No crackles. GASTROINTESTINAL: Abdomen nondistended. BS +. MUSCULOSKELETAL: Extremities without clubbing, cyanosis, or edema. No calf tenderness or asymmetry. No obvious deformities. NEUROLOGICAL: Awake and alert. No obvious cranial nerve deficits. No tremors noted. Motor grossly within normal limits. Five out of 5 muscle strength in the arms and legs. Normal speech. PSYCHIATRIC: Appropriate mood and affect; insight and judgment normal. A/P Assessment and Plan 56-year-old male who presents with upper respiratory symptoms, dyspnea on exertion, and hypoxia. He was admitted for further monitoring of oxygen status and further workup. DDx: viral URI vs bronchitis vs croup Discharge Planning Anticipate discharge in 2-3 days. Failed home O2 walk test 05/12/17 Problem List: (1) Bronchitis ICD Codes: J40 - Bronchitis, not specified as acute or chronic Status: Acute Plan: Suspect viral episode. However, given increased severity of symptoms compared to previous viral episodes in addition to hypoxia, will treat for community-acquired pneumonia at this time. * Rocephin 1 g daily IV and azithromycin 500 mg daily PO initiated 05/10/17 * Duo nebs every 4 hours scheduled * Discontinue Solumedrol 60mg q 12hr IV initiated 05/11/17 * Start Prednisone 40mg PO BID (AM and 2PM) * Start Pulmicort ICS inhaler * Albuterol every 2 hours PRN * Oxygen via nasal cannula, goal saturation > or equal to 93%, decreased to 2 liters/minute via nc 05-13-17. * Encouraged regular use of incentive spirometry * Likely to transition to by PO antibiotics 05/14 * Mucinex PRN * Sputum culture if productive cough * Influenza negative * Legionella and Strep negative * Blood cultures negative * ABG pending * Lactate continues to rise--at 3.4 this afternoon * Passed walk test without supplemental O2 this afternoon (2) Shortness of breath ICD Codes: R06.02 - Shortness of breath Status: Acute Plan: Suspected related to acute infection, however may be related to ADAM as well. PE ruled out with D dimer (Wells Score of 3 given hx PE and tachycardia on admission) * D dimer low * CXR in ED and repeat on 05/11 normal * Recommend patient receive new evaluation for CPAP given hx ADAM and narrowed airway * Failed home O2 walk test 05/12/17; passed 05/14/17 (3) Hypoxia ICD Codes: R09.02 - Hypoxemia Status: Acute Plan: As above (4) Subtherapeutic anticoagulation ICD Codes: Z51.81 - Encounter for therapeutic drug level monitoring; Z79.01 - truck terminal manager (current) use of anticoagulants Status: Acute Plan: Patient has a PE on warfarin 10 mg daily with exception of Sunday and Sunday during which time he takes 15 mg daily This was was diagnosed during hospital stay in April 2016 during which he was found to have a negative echo and negative coagulopathy work-up. INR is 1.5 on admission. * Continue warfarin at 10mg daily * Will continue to monitor INR, 2.3 17 (5) HTN (hypertension) ICD Codes: I10 - Essential (primary) hypertension Status: Chronic Plan: * BP wnl on atenolol 12.5mg BID * Clonidine PRN (6) HLD (hyperlipidemia) ICD Codes: E78.5 - Hyperlipidemia, unspecified Status: Chronic Plan: * Continue home dose pravastatin 80 mg nightly (7) Severe recurrent major depression ICD Codes: F33.2 - Severe recurrent major depression Status: Chronic Plan: * Previous suicide attempt on 02/2015. Patient is currently on Effexor 150 mg daily, Abilify 10 mg daily. This is different than his regimen records from April 2016 admission. His depression is well controlled and notably would like to be DNR this hospital stay * There is no evidence of mood instability at this time and patient appears to have capacity * Will honor DNR request this hospital stay, monitor closely for signs of psychosis * Continue home dose Abilify 10 mg daily. Continue home dose of Effexor 150 mg daily. (8) Nutrition, metabolism, and development symptoms ICD Codes: R63.8 - Other symptoms and signs concerning food and fluid intake Status: Acute Plan: Fluids: tolerating PO Electrolytes: monitor and replete as needed Nutrition: heart-healthy diet DVT Prophylaxis: Early ambulation. Xarelto 10mg daily in hospital. Home dose of coumadin 10mg -, Sat and Sun; 15mg daily Sunday and Sunday. GI Prophylaxis: not indicated PRN anti-HTN: Clonidine 0.1mg PO PRN for SBP > 180/ and/or DBP > 100 Problem Qualifiers (1) HLD (hyperlipidemia): Qualified Codes: E78.2 - Mixed hyperlipidemia Suad Wilkinson MD R2 May 15, 2017 13:19
== END 2017-05-15 14:27 | disposition home or self-care (01) | DRG 202 ==
LOC: NEPC 14:03 → NEDA 18:24 → NEPGCP 19:59 → OBSVTOIN 05-11 15:36 → N06A 05-11 21:43
PROVIDERS: ADMIT Family Medicine; ATTEND Family Medicine
DX: J40 Bronchitis, not specified as acute or chronic (principal); J18.9 Pneumonia, unspecified organism; Z68.41 Body mass index [BMI] 40.0-44.9, adult; I10 Essential (primary) hypertension; R79.1 Abnormal coagulation profile; Z79.01 Long term (current) use of anticoagulants; R09.02 Hypoxemia; E78.5 Hyperlipidemia, unspecified; G47.33 Obstructive sleep apnea (adult) (pediatric); F32.9 Major depressive disorder, single episode, unspecified; E66.9 Obesity, unspecified; Z66 Do not resuscitate; F17.290 Nicotine dependence, other tobacco product, uncomplicated; Z86.711 Personal history of pulmonary embolism
CPT/HCPCS: 36600; 71010; 71020; 76937; 80048; 80053; 81001; 82550; 82552; 82805; 83605; 83880; 84484; 85025; 85379; 85610; 85730; 87040; 87070; 87205; 87449; 87804; 93005; 94150; 94620; 94640; 94664; 94667; 94668; 96374; 96375; G0378; G8987-GP; G8988-GP; J0456; J0696; J2930; J7040; J7050; J7512; J7613; J7626

== ENCOUNTER 2017-11-09 10:51 | Emergency (ER) | payer OTHER ==
[~2017-11-09] VITALS: Ht 177.8 cm; Wt 150.0 kg
[~2017-11-09 10:51] MED LIST changes: +ABIL10TA8 PO; -ASPI81 CHEW; +ATEN25TA PO; +BUDE.5I NEB; +EFFE150C PO; +FLUT50SP EACH NARE; +IPRASOL INH; -LEXA5TAB PO; -LURA20TA PO; +NEBULIZER1 MI1; +PRED20 PO; -RIVA15 PO; +SIMV40TA PO; +WARF-22 PO; -WELL150T PO; -ZOCO40TA PO; +guaiFENesin ER PO
[2017-11-09 11:01] VITALS: BP 151/84; PULSE 98; RESP 17; TEMP 97.7; O2SAT 95
--- NOTE | 2017-11-09 11:14 | PD ---
HPI Chief Complaint: Skin Problem Time Seen by Provider: 11:06 Travel History International Travel<30 days: No Contact w/Intl Traveler<30days: No Traveled to known affect area: No History of Present Illness HPI This is a 66-year-old male who presents for evaluation of a large mass on his left mid back. He reports that he has had a small bump there for several months. Over the past 3 weeks the bump became larger. [facility] and prescribed Keflex for presumably an abscess. He was told to put warm compresses on it. He reports that he "doubled in size" overnight and that is why he presented here. He reports pain, aching, worse with palpation. Denies any fevers, chills, abdominal pain, night sweats, unexplained weight loss. No other complaints at this time. PFSH Past Medical History Asthma: No Blood Disorders: No Anxiety: No Depression: Yes Heart Rhythm Problems: No Cancer: No Cardiovascular Problems: Yes High Cholesterol: Yes Chest Pain: No Congestive Heart Failure: No COPD: No Diabetes: No Endocrine: No Gastrointestinal Disorders: No Genitourinary: No Hypertension: Yes (HISTORY OF HYPERTENSION) Immune Disorder: No Implanted Vascular Access Dvce: No Musculoskeletal: Yes (OLD BACK INJURY THAT CAUSES OCCASSIONAL BACK PAIN) Neurologic: Yes (TINITIS/ back pain causes nerve pain) Psychiatric: Yes (depression) Reproductive: No Respiratory: Yes (PE in 2016) Sleep Apnea: Yes (3o years ago) Thyroid Disease: No Past Surgical History Other Surgery: No Social History Alcohol Use: No Tobacco Use: No Substance Use: No Allergies-Medications (Allergen,Severity, Reaction): Coded Allergies: shellfish derived (Verified Allergy, Unknown, 05/10/17) Reported Meds & Prescriptions Reported Meds & Active Scripts Active Doxycycline Hyclate 100 Mg Cap 100 Mg PO BID Duoneb (Ipratropium-Albuterol Neb) 0.5-2.5 Mg/3 Ml Neb 1 Nebule INH Q6HR NEB PRN Pulmicort Respules (Budesonide) 0.5 Mg/2 Ml Neb 0.5 Mg NEB Q12HR NEB Reported Cephalexin 500 Mg Cap 500 Mg PO QID Warfarin 10 Mg Tab 10 Mg PO DAILY Atenolol 25 Mg Tab 25 Mg PO BID Simvastatin 40 Mg Tab 40 Mg PO HS Abilify (Aripiprazole) 10 Mg Tab 10 Mg PO DAILY Effexor XR 24 HR (Venlafaxine HCl) 150 Mg Cap 150 Mg PO DAILY Review of Systems Except as stated in HPI: all other systems reviewed are Neg Physical Exam Narrative GENERAL: Well-developed well-nourished male in no acute distress SKIN: Warm and dry. There is a 13 x 10 cm circular fluctuant mass on the posterior left thoracic region. HEAD: Atraumatic. Normocephalic. EYES: Pupils equal and round. No scleral icterus. No injection or drainage. ENT: No nasal bleeding or discharge. Mucous membranes pink and moist. NECK: Trachea midline. No JVD. CARDIOVASCULAR: Regular rate and rhythm. No murmur appreciated. RESPIRATORY: No accessory muscle use. Clear to auscultation. Breath sounds equal bilaterally. GASTROINTESTINAL: Abdomen soft, non-tender, nondistended. Hepatic and splenic margins not palpable. MUSCULOSKELETAL: No obvious deformities. No clubbing. No cyanosis. No edema. NEUROLOGICAL: Awake and alert. No obvious cranial nerve deficits. Motor grossly within normal limits. Normal speech. PSYCHIATRIC: Appropriate mood and affect; insight and judgment normal. Data Data Last Documented VS Vital Signs Date Time Temp Pulse Resp B/P (MAP) Pulse Ox O2 Delivery O2 Flow Rate FiO2 11/09/17 11:10 16 11/09/17 11:01 97.7 98 151/84 (106) 95 Orders Orders Complete Blood Count With Diff (11/09/17 11:11) Comprehensive Metabolic Panel (11/09/17 11:11) Prothrombin Time / Inr (Pt) (11/09/17 11:11) Act Partial Throm Time (Ptt) (11/09/17 11:11) Ct Abd/Pel W Iv Contrast(Rout) (11/09/17 11:11) Iv Access Insert/Monitor (11/09/17 11:11) Lidocai-Epi 1%-1:100,000 Inj (Xylocaine- (11/09/17 11:15) Iohexol 350 Inj (Omnipaque 350 Inj) (11/09/17 12:52) Wound Culture And Gram Stain (11/09/17 13:39) Labs Laboratory Tests Test 11/09/17 11:20 White Blood Count 10.6 TH/MM3 Red Blood Count 4.75 MIL/MM3 Hemoglobin 14.2 GM/DL Hematocrit 42.1 % Mean Corpuscular Volume 88.8 FL Mean Corpuscular Hemoglobin 29.9 PG Mean Corpuscular Hemoglobin Concent 33.7 % Red Cell Distribution Width 14.4 % Platelet Count 314 TH/MM3 Mean Platelet Volume 8.0 FL Neutrophils (%) (Auto) 62.9 % Lymphocytes (%) (Auto) 25.3 % Monocytes (%) (Auto) 9.9 % Eosinophils (%) (Auto) 1.4 % Basophils (%) (Auto) 0.5 % Neutrophils # (Auto) 6.6 TH/MM3 Lymphocytes # (Auto) 2.7 TH/MM3 Monocytes # (Auto) 1.0 TH/MM3 Eosinophils # (Auto) 0.1 TH/MM3 Basophils # (Auto) 0.0 TH/MM3 CBC Comment DIFF FINAL Differential Comment Prothrombin Time 26.8 SEC Prothromb Time International Ratio 2.7 RATIO Activated Partial Thromboplast Time 41.3 SEC Blood Urea Nitrogen 19 MG/DL Creatinine 1.03 MG/DL Random Glucose 108 MG/DL Total Protein 8.4 GM/DL Albumin 3.8 GM/DL Calcium Level 9.8 MG/DL Alkaline Phosphatase 68 U/L Aspartate Amino Transf (AST/SGOT) 25 U/L Alanine Aminotransferase (ALT/SGPT) 29 U/L Total Bilirubin 0.5 MG/DL Sodium Level 138 MEQ/L Potassium Level 4.7 MEQ/L Chloride Level 103 MEQ/L Carbon Dioxide Level 24.1 MEQ/L Anion Gap 11 MEQ/L Estimat Glomerular Filtration Rate 72 ML/MIN MDM Medical Decision Making Medical Screen Exam Complete: Yes Emergency Medical Condition: Yes Medical Record Reviewed: Yes Differential Diagnosis Infected cyst, abscess, hematoma, lipoma, sarcoma Narrative Course CT of the abdomen and pelvis reveals CONCLUSION: Low density cystic mass in the subcutaneous fat along the left central back at the T10-11 level. There are no gas bubbles. The differential diagnosis includes abscess and hematoma. After verbal consent was obtained incision and drainage was performed in a very large amount of purulent foul-smelling drainage was expressed. A wound culture was obtained. The structure was packed with gauze and the patient will return in 2 days for recheck. He is currently on Keflex prescribed by his primary care physician, he will be given a prescription for doxycycline to use as well pending wound culture results. Procedures Procedure Narrative INCISION AND DRAINAGE OF infected cyst: The area was prepped and was sterilely draped. A subcutaneous wheal of 1% Xylocaine with epinephrine with a total number 10 mL was used to anesthetize the area. The area was properly anesthetized. A number 11 scalpel was used to make a 2-cm incision across the area of the abscess. Cultures were obtained. The abscess was drained an irrigated with normal saline. Quarter inch iodoform packing was placed in the wound. Sterile dressing applied. Patient advised to have packing removed in two days. Diagnosis Primary Impression: Infected sebaceous cyst Additional Instructions: Medication as prescribed. Return in 2 days for packing removal. Return sooner for acutely worsening symptoms such as fevers, increasing area of redness. Med/Other Pt SpecificInfo: Prescription(s) given, Wound Care Scripts Doxycycline Hyclate (Doxycycline Hyclate) 100 Mg Cap 100 MG PO BID for Infection, #20 CAP 0 Refills Prov: Fernandez Flores MD 11/09/17 Disposition: 01 DISCHARGE HOME Condition: Stable Mio Wheeler November 09, 2017 11:14
[2017-11-09] MEDS ORDERED: LIDOCAINE 1%/EPINEPHrine 1:100,000 SOLN 50 ML VIAL INFIL ONE (11:15)
[2017-11-09] MEDS ORDERED: CEPH500C PO (11:26)
[2017-11-09 11:36] LABS: AUTOMATED NEUTROPHIL # 6.6 TH/MM3 (1.8-7.7); BASOPHIL % 0.5 % (0.0-2.0); EOSINOPHIL # 0.1 TH/MM3 (0-0.4); EOSINOPHIL % 1.4 % (0.0-4.0); HEMATOCRIT 42.1 % (39.0-51.0); HEMOGLOBIN 14.2 GM/DL (13.0-17.0); LYMPH % 25.3 % (9.0-44.0); LYMPHOCYTE # 2.7 TH/MM3 (1.0-4.8); MEAN CELL VOLUME 88.8 FL (80.0-100.0); MEAN CORPUSCULAR HEMOGLOBIN 29.9 PG (27.0-34.0); MEAN CORPUSCULAR HGB CONC 33.7 % (32.0-36.0); MONO % 9.9 % (0.0-8.0); NEUT % 62.9 % (16.0-70.0); PLATELET COUNT 314 TH/MM3 (150-450); RED BLOOD COUNT 4.75 MIL/MM3 (4.50-5.90); RED CELL DISTRIBUTION WIDTH 14.4 % (11.6-17.2); WHITE BLOOD COUNT 10.6 TH/MM3 (4.0-11.0)
[2017-11-09 11:46] LABS: INTERNATIONAL NORMALIZED RATIO 2.7 RATIO; PROTHROMBIN TIME - PATIENT 26.8 SEC (9.8-11.6)
[2017-11-09 11:48] LABS: ALBUMIN 3.8 GM/DL (3.4-5.0); ALT (GPT) 29 U/L (12-78); AST (GOT) 25 U/L (15-37); BICARBONATE 24.1 MEQ/L (21.0-32.0); BLOOD UREA NITROGEN 19 MG/DL (7-18); CALCIUM 9.8 MG/DL (8.5-10.1); CHLORIDE 103 MEQ/L (98-107); CREATININE 1.03 MG/DL (0.60-1.30); GLOMERULAR FILTRATION RATE 72 ML/MIN (>89); GLUCOSE,RANDOM 108 MG/DL (74-106); SODIUM (NA) 138 MEQ/L (136-145)
[2017-11-09 11:51] LABS: ALKALINE PHOSPHATASE 68 U/L (45-117); TOTAL BILIRUBIN ADULT 0.5 MG/DL (0.2-1.0); TOTAL PROTEIN 8.4 GM/DL (6.4-8.2)
[2017-11-09] MEDS ORDERED: IOHEXOL 350 MG/ML 10 ML VIAL (for RAD DIAG) IVCONTRAST ONE (12:52)
--- NOTE | 2017-11-09 13:12 | RADRPT ---
EXAM DATE/TIME: 11/09/2017 12:41 [facility] COMPARISON: No previous studies available for comparison. INDICATIONS : Pain, swelling and redness. Evaluate for abscess along back. Started antibiotics ye sterday, doubled in size since then. IV CONTRAST: 70 cc Omnipaque 350 (iohexol) IV ORAL CONTRAST: No oral contrast ingested. RADIATION DOSE: 16.94 CTDIvol (mGy) MEDICAL HISTORY : Hypertension. Cardiovascular disease SURGICAL HISTORY : None. ENCOUNTER: Initial ACUITY: 1 day PAIN SCALE: 6/10 LOCATION: Left back abscess TECHNIQUE: Volumetric scanning of the abdomen and pelvis was performed. Using automated exposure control and adjustment of the mA and/or kV according to patient size, radiation dose was kept as low as reasonably achievable to obtain optimal diagnostic quality images. DICOM format image data is av ailable electronically for review and comparison. FINDINGS: LOWER LUNGS: The visualized lower lungs are clear. LIVER: Homogeneous density without lesion. There is no dilation of the biliary tree. No calcifi ed gallstones. There is moderate hepatic steatosis. The gallbladder is unremarkable. SPLEEN: Normal size without lesion. PANCREAS: Within normal limits. KIDNEYS: Normal in size and shape. There is no mass or hydronephrosis. There are 2 small nonobst ructing 2 mm left renal calculi. ADRENAL GLANDS: Within normal limits. VASCULAR: There is no aortic aneurysm. BOWEL/MESENTERY: The stomach, small bowel, and colon demonstrate no acute abnormality. There is no free intraperitoneal air or fluid. ABDOMINAL WALL: Within normal limits. RETROPERITONEUM: There is no lymphadenopathy. BLADDER: No wall thickening or mass. REPRODUCTIVE: Within normal limits. INGUINAL: There is no lymphadenopathy or hernia. MUSCULOSKELETAL: There is a low attenuation cystic appearing mass in the subcutaneous fat along t he left mid back at the T10-11 level. This measures up to 8 x 4.3 x 7.2 cm in diameter. There is an i rregular thin enhancing rim which is indistinct. There are no gas bubbles. This extends to the skin s urface and there is mild skin thickening. The adjacent paraspinous musculature is intact. CONCLUSION: Low density cystic mass in the subcutaneous fat along the left central back at the T1 0-11 level. There are no gas bubbles. The differential diagnosis includes abscess and hematoma. Caleb Hernandez MD on November 09, 2017 at 13:06 Board Certified Radiologist. This report was verified electronically.
[2017-11-09] MEDS ORDERED: DOXY100C PO (13:37)
== END 2017-11-09 13:50 | disposition home or self-care (01) ==
LOC: NEPD 10:51
DX: L72.3 Sebaceous cyst (principal); L08.9 Local infection of the skin and subcutaneous tissue, unspecified; B96.89 Other specified bacterial agents as the cause of diseases classified elsewhere; I10 Essential (primary) hypertension; E78.00 Pure hypercholesterolemia, unspecified; F32.9 Major depressive disorder, single episode, unspecified; Z86.711 Personal history of pulmonary embolism; Z79.01 Long term (current) use of anticoagulants; Z79.899 Other long term (current) drug therapy; Z79.2 Long term (current) use of antibiotics
CPT/HCPCS: 10060; 74177; 80053; 85025; 85610; 85730; 87070; 87185; 99284; Q9967

== ENCOUNTER 2017-11-11 14:31 | Emergency (ER) | payer OTHER ==
[~2017-11-11] VITALS: Ht 177.8 cm; Wt 150.0 kg
[~2017-11-11 14:31] MED LIST changes: +CEPH500C PO; +DOXY100C PO; -FLUT50SP EACH NARE; -NEBULIZER1 MI1; -PRED20 PO; -guaiFENesin ER PO
[2017-11-11 14:33] VITALS: RESP 18; TEMP 98; O2SAT 99
[2017-11-11 14:41] VITALS: BP 140/83; PULSE 91; RESP 16; TEMP 98.3; O2SAT 96
--- NOTE | 2017-11-11 14:57 | PD ---
HPI Chief Complaint: Wound/Suture/Staple Re-Check Time Seen by Provider: 14:56 Travel History International Travel<30 days: No Contact w/Intl Traveler<30days: No Traveled to known affect area: No History of Present Illness HPI 66-year-old male came to the emergency room for wound recheck. Patient had an I and D of the back on the fourth of this month. Packing was done and he was asked to return in 48 hours for wound recheck. Patient says he feels better he has been taking the antibiotic like he supposed to. [facility]. Vital signs are stable. His wound culture is growing anaerobic gram -positive cocci [facility] Past Medical History Narrative Medical List of his past medical, surgical, social and family history is reviewed from the nursing note Asthma: No Blood Disorders: No Anxiety: No Depression: Yes Heart Rhythm Problems: No Cancer: No Cardiovascular Problems: Yes High Cholesterol: Yes Chest Pain: No Congestive Heart Failure: No COPD: No Diabetes: No Endocrine: No Gastrointestinal Disorders: No Genitourinary: No Hypertension: Yes (HISTORY OF HYPERTENSION) Immune Disorder: No Implanted Vascular Access Dvce: No Musculoskeletal: Yes (OLD BACK INJURY THAT CAUSES OCCASSIONAL BACK PAIN) Neurologic: Yes (TINITIS/ back pain causes nerve pain) Psychiatric: Yes (depression) Reproductive: No Respiratory: Yes (PE in 2016) Sleep Apnea: Yes (3o years ago) Thyroid Disease: No Past Surgical History Other Surgery: No Social History Alcohol Use: No Tobacco Use: No Substance Use: No Allergies-Medications (Allergen,Severity, Reaction): Coded Allergies: shellfish derived (Verified Allergy, Unknown, 05/10/17) Comments List of his allergies reviewed from the nursing note Reported Meds & Prescriptions Reported Meds & Active Scripts Active Clindamycin (Clindamycin HCl) 300 Mg Cap 300 Mg PO TID 10 Days Doxycycline Hyclate 100 Mg Cap 100 Mg PO BID Duoneb (Ipratropium-Albuterol Neb) 0.5-2.5 Mg/3 Ml Neb 1 Nebule INH Q6HR NEB PRN Pulmicort Respules (Budesonide) 0.5 Mg/2 Ml Neb 0.5 Mg NEB Q12HR NEB Reported Cephalexin 500 Mg Cap 500 Mg PO QID Warfarin 10 Mg Tab 10 Mg PO DAILY Atenolol 25 Mg Tab 25 Mg PO BID Simvastatin 40 Mg Tab 40 Mg PO HS Abilify (Aripiprazole) 10 Mg Tab 10 Mg PO DAILY Effexor XR 24 HR (Venlafaxine HCl) 150 Mg Cap 150 Mg PO DAILY Narrative Medication List of his home medications reviewed from the nursing note Review of Systems Except as stated in HPI: all other systems reviewed are Neg Physical Exam Narrative GENERAL: Awake, alert, no obvious distress, morbidly obese SKIN: Focused skin assessment warm/dry. Back has a dressing on. Upon taking the dressing down there is still significant amount of serosanguineous drainage that has soaked through the dressing. The packing is in and the surrounding skin to the incision is erythematous, tense and shiny. HEAD: Atraumatic. Normocephalic. EYES: Pupils equal and round. No scleral icterus. No injection or drainage. ENT: No nasal bleeding or discharge. Mucous membranes pink and moist. NECK: Trachea midline. No JVD. CARDIOVASCULAR: Regular rate and rhythm. No murmur appreciated. RESPIRATORY: No accessory muscle use. Clear to auscultation. Breath sounds equal bilaterally. GASTROINTESTINAL: Abdomen soft, non-tender, nondistended. Hepatic and splenic margins not palpable. MUSCULOSKELETAL: No obvious deformities. No clubbing. No cyanosis. No edema. NEUROLOGICAL: Awake and alert. No obvious cranial nerve deficits. Motor grossly within normal limits. Normal speech. PSYCHIATRIC: Appropriate mood and affect; insight and judgment normal. Data Data Last Documented VS Orders Orders Ed Discharge Order (11/11/17 15:51) [facility] Medical Decision Making Medical Screen Exam Complete: Yes Emergency Medical Condition: Yes Medical Record Reviewed: Yes Differential Diagnosis Abscess, wound recheck Narrative Course 3:59 PM based on the clinical appearance of the wound I decided to take the packing out and use forcep to see if there were any other loculations that needed to be broken to get the abscess cavity fully clean. Please refer to my procedure note. The wound was repacked. Given the growth on the culture I have added clindamycin. Patient will be discharged home. He tolerated the procedure well. Procedures Procedure Narrative Abscess cavity repacking: The previous packing was taken out and forceps were used to introduce into the abscess cavity and try to break any additional loculations. Not much drainage came out. The wound cavity was repacked. Patient tolerated the procedure well. EKG Prior to Arrival: No Diagnosis Primary Impression: Back abscess Additional Impression: Encounter for wound re-check Referrals: Primary Care Physician Additional Instructions: Follow-up with your primary care in 48-72 hours for packing removal and wound recheck. Start the new antibiotic that has been prescribed to you along with doxycycline. You need not continue Keflex. Med/Other Pt SpecificInfo: Prescription(s) given Scripts Clindamycin (Clindamycin) 300 Mg Cap 300 MG PO TID for Infection for 10 Days, CAP 0 Refills Prov: Verito Coy MD 11/11/17 Disposition: 01 DISCHARGE HOME Condition: Stable Verito Coy MD November 11, 2017 14:56
[2017-11-11] MEDS ORDERED: CLIN300C5 PO (15:50)
== END 2017-11-11 16:24 | disposition home or self-care (01) ==
LOC: NEPD 14:31
DX: L02.212 Cutaneous abscess of back [any part, except buttock and flank] (principal); Z48.00 Encounter for change or removal of nonsurgical wound dressing; I10 Essential (primary) hypertension; E78.00 Pure hypercholesterolemia, unspecified; F32.9 Major depressive disorder, single episode, unspecified; Z79.01 Long term (current) use of anticoagulants; Z79.899 Other long term (current) drug therapy
CPT/HCPCS: 99281